=== PATIENT | female | born 1950 | race African-American/Black ===

== ENCOUNTER 2016-04-06 07:30 | Emergency (ER) | payer MEDICARE, OTHER ==
[~2016-04-06] VITALS: Ht 157.5 cm; Wt 65.0 kg
[~2016-04-06 07:30] MED LIST: BENT20TA PO; CARA1TAB6 PO; CELE20TA PO; CLON.5 PO; CLON0.1T PO; EXTR500C PO; HYDR-3583 PO; LORA1TAB12 PO; MECL-62 PO; POTA20TA5 PO; PROT40TA PO; ZANT150T2 PO; ZOFR4TAB PO
[2016-04-06 07:31] VITALS: BP 150/69; PULSE 77; RESP 14; TEMP 98; O2SAT 95
[2016-04-06] MEDS ORDERED: ONDANSETRON HCL 4 MG/2 ML VIAL IVP ONE (08:00)
[2016-04-06] MEDS ORDERED: PANTOPRAZOLE SODIUM 40 MG VIAL IVP ONE (08:00)
[2016-04-06] MEDS ORDERED: ALUMINUM/MAGNESIUM/SIMETH 30 ML CUP PO ONE (08:00)
[2016-04-06] MEDS ORDERED: MORPHINE SULFATE 4 MG/ML INJ IV PUSH ONE (08:00)
[2016-04-06] MEDS ORDERED: SODIUM CHLORIDE 0.9% FLUSH 5 ML FLUSH IVF PRN (08:00)
[2016-04-06] MEDS ORDERED: LIDOCAINE VISCOUS 2% SOLN 15 ML UDC PO ONE (08:00)
--- NOTE | 2016-04-06 08:19 | PD ---
HPI Chief Complaint: Abdominal Pain Time Seen by Provider: 07:51 Travel History International Travel<30 days: No Contact w/Intl Traveler<30days: No History of Present Illness HPI Patient is a 65-year-old female with history of gastritis who presents the emergency department with complaint of abdominal pain. Patient has had long- standing history of gastritis. For the last 2 days after eating cabbage she notes epigastric abdominal pain that radiates throughout the abdomen, nausea, vomiting and some diarrhea. Pain is crampy, burning in nature. No hematemesis or hematochezia. No fevers or chills. States this feels very similar to history of gastritis. Per chart review patient has been here many times for similar complaints. She last had an EGD on 08/13/15 with Schatzki ring in the distal esophagus, diaphragmatic hiatal hernia, gastritis, multiple biopsies that were negative for H. pylori or cancer. PFSH Past Medical History Arthritis: Yes Asthma: No Autoimmune Disease: No Blood Disorders: No Anxiety: Yes Depression: No Heart Rhythm Problems: No Cancer: No Cardiovascular Problems: Yes (HTN) High Cholesterol: No Chest Pain: No Congestive Heart Failure: No COPD: No Diabetes: No Diminished Hearing: No Endocrine: No Gastrointestinal Disorders: Yes (chronic gastritis ) GERD: Yes Genitourinary: No Hiatal Hernia: No Hypertension: Yes Immune Disorder: No Musculoskeletal: No Neurologic: No Psychiatric: Yes Reproductive: No Respiratory: No Immunizations Current: Yes Thyroid Disease: No Ulcer: Yes PNEUMOCCOCAL Vaccine (Year): 2 Menopausal: Yes : 3 Para: 3 Miscarriage: 0 : 0 Tubal Ligation: Yes (1978) Past Surgical History AICD: No Gynecologic Surgery: Yes Hysterectomy: Yes Pacemaker: No Other Surgery: Yes Social History Alcohol Use: No Tobacco Use: Yes (02/23 PPD) Substance Use: No Allergies-Medications (Allergen,Severity, Reaction): Coded Allergies: No Known Allergies (Verified , 04/06/16) Reported Meds & Prescriptions Reported Meds & Active Scripts Active Protonix (Pantoprazole Sodium) 40 Mg Tab 40 Mg PO DAILY Reported Gabapentin 300 Mg Cap 300 Mg PO DAILY Xarelto (Rivaroxaban) 20 Mg Tab 20 Mg PO DAILY Lorazepam 1 Mg Tab 1 Mg PO TID PRN Clonidine (Clonidine HCl) 0.1 Mg Tab 0.1 Mg PO BID Review of Systems Except as stated in HPI: all other systems reviewed are Neg Physical Exam Narrative GENERAL: Well-appearing elderly female in no acute distress SKIN: Warm and dry. HEAD:Normocephalic. EYES: No scleral icterus. No injection or drainage. ENT: Mucous membranes pink and moist. NECK: Supple CARDIOVASCULAR: Regular rate and rhythm. No murmur appreciated. RESPIRATORY: No accessory muscle use. Clear to auscultation. Breath sounds equal bilaterally. GASTROINTESTINAL: Abdomen soft, epigastric abdominal tenderness to palpation without rebound or guarding, nondistended. MUSCULOSKELETAL: Normal gait NEUROLOGICAL: Awake and alert. Normal speech. PSYCHIATRIC: Appropriate mood and affect; insight and judgment normal. Data Data Last Documented VS Vital Signs Date Time Temp Pulse Resp B/P Pulse Ox O2 Delivery O2 Flow Rate FiO2 04/06/16 09:44 20 04/06/16 09:08 85 176/83 95 04/06/16 07:31 98.0 Room Air Orders Complete Blood Count With Diff (04/06/16 07:59) Comprehensive Metabolic Panel (04/06/16 07:59) Lipase (04/06/16 07:59) Iv Access Insert/Monitor (04/06/16 07:59) Ecg Monitoring (04/06/16 07:59) Oximetry (04/06/16 07:59) Morphine Inj (Morphine Inj) (04/06/16 08:00) Ondansetron Inj (Zofran Inj) (04/06/16 08:00) Pantoprazole Inj (Protonix Inj) (04/06/16 08:00) Sodium Chloride 0.9% Flush (Ns Flush) (04/06/16 08:00) Electrocardiogram (04/06/16 07:59) Al-Mag Hy-Si 40-40-4 Mg/Ml Liq (Mag-Al P (04/06/16 08:00) Lidocaine 2% Viscous (Xylocaine 2% Visco (04/06/16 08:00) Urinalysis - C+S If Indicated (04/06/16 09:55) Famotidine Inj (Pepcid Inj) (04/06/16 10:15) Urine Culture (04/06/16 10:00) Labs Laboratory Tests Test 04/06/16 04/06/16 08:50 10:00 White Blood Count 12.4 TH/MM3 Red Blood Count 4.18 MIL/MM3 Hemoglobin 13.1 GM/DL Hematocrit 39.0 % Mean Corpuscular Volume 93.2 FL Mean Corpuscular Hemoglobin 31.4 PG Mean Corpuscular Hemoglobin 33.6 % Concent Red Cell Distribution Width 15.8 % Platelet Count 330 TH/MM3 Mean Platelet Volume 8.9 FL Neutrophils (%) (Auto) 84.7 % Lymphocytes (%) (Auto) 6.8 % Monocytes (%) (Auto) 7.7 % Eosinophils (%) (Auto) 0.2 % Basophils (%) (Auto) 0.6 % Neutrophils # (Auto) 10.5 TH/MM3 Lymphocytes # (Auto) 0.8 TH/MM3 Monocytes # (Auto) 1.0 TH/MM3 Eosinophils # (Auto) 0.0 TH/MM3 Basophils # (Auto) 0.1 TH/MM3 CBC Comment AUTO DIFF Differential Total Cells 100 Counted Neutrophils % (Manual) 76 % Band Neutrophils % 2 % Lymphocytes % 8 % Monocytes % 14 % Neutrophils # (Manual) 9.7 TH/MM3 Differential Comment FINAL DIFF MANUAL Platelet Estimate NORMAL Platelet Morphology Comment NORMAL Red Cell Morphology Comment NORMAL Sodium Level 138 MEQ/L Potassium Level 3.9 MEQ/L Chloride Level 106 MEQ/L Carbon Dioxide Level 24.4 MEQ/L Anion Gap 8 MEQ/L Blood Urea Nitrogen 11 MG/DL Creatinine 0.93 MG/DL Estimat Glomerular Filtration 73 ML/MIN Rate Random Glucose 115 MG/DL Calcium Level 8.7 MG/DL Total Bilirubin 0.5 MG/DL Aspartate Amino Transf 26 U/L (AST/SGOT) Alanine Aminotransferase 14 U/L (ALT/SGPT) Alkaline Phosphatase 60 U/L Total Protein 7.6 GM/DL Albumin 3.3 GM/DL Lipase 67 U/L Urine Color YELLOW Urine Turbidity CLOUDY Urine pH 5.5 Urine Specific Camp 1.027 Urine Protein 30 mg/dL Urine Glucose (UA) NEG mg/dL Urine Ketones NEG mg/dL Urine Occult Blood SMALL Urine Nitrite NEG Urine Bilirubin NEG Urine Urobilinogen LESS THAN 2.0 MG/DL Urine Leukocyte Esterase LARGE Urine RBC 13 /hpf Urine WBC /hpf Urine WBC Clumps FEW Urine Squamous Epithelial 8 /hpf Cells Urine Bacteria FEW /hpf Urine Mucus FEW /lpf Microscopic Urinalysis Comment CULTURE INDICATED MDM Medical Decision Making Medical Screen Exam Complete: Yes Emergency Medical Condition: Yes Medical Record Reviewed: Yes Differential Diagnosis 65-year-old female with long-standing gastritis here with complaint of epigastric abdominal pain radiating from the abdomen. Differential includes gastritis, pancreatitis, hepatobiliary pathology, peptic ulcer disease, bowel obstruction, gastroenteritis. Narrative Course Patient placed on monitor, IV established and blood obtained. Patient given 4 mg morphine, 4 mg Zofran, IV PPI and GI cocktail. Twelve-lead EKG showed sinus rhythm with sinus arrhythmia but no notable ST abnormalities, normal intervals. CBC, CMP, lipase unremarkable. Patient made multiple trips to the bathroom to urinate while she was here and urinalysis was done with innumerable white cell clumps, bacteria. Patient will be treated with Keflex for home. Diagnosis Primary Impression: Gastritis Qualified Code: K29.50 - Other chronic gastritis without hemorrhage Additional Impression: UTI (urinary tract infection) Qualified Code: N30.01 - Acute cystitis with hematuria Referrals: [facility] call for appointment Primary Care Physician call for appointment Additional Instructions: Finish antibiotics prescribed. Follow-up with GI physician as discussed. Med/Other Pt SpecificInfo: Prescription(s) given Scripts Cephalexin (Keflex)500 Mg [id number] Mg PO Q8H #30 CAP Ref 0 Prov:Elza Patel MD 04/06/16 Disposition: 01 DISCHARGE HOME Condition: Stable Elza Patel MD Apr 06, 2016 08:19
[2016-04-06 09:08] VITALS: BP 176/83; PULSE 85; RESP 20; O2SAT 95
[2016-04-06] MEDS ORDERED: GABA300C5 PO (09:11)
[2016-04-06] MEDS ORDERED: XARE20TA PO (09:11)
[2016-04-06 09:21] LABS: AUTOMATED NEUTROPHIL # 10.5 TH/MM3 (1.8-7.7); BASOPHIL # 0.1 TH/MM3 (0-0.2); BASOPHIL % 0.6 % (0.0-2.0); EOSINOPHIL % 0.2 % (0.0-4.0); LYMPH % 6.8 % (9.0-44.0); LYMPHOCYTE # 0.8 TH/MM3 (1.0-4.8); MEAN CELL VOLUME 93.2 FL (80.0-100.0); MEAN CORPUSCULAR HEMOGLOBIN 31.4 PG (27.0-34.0); MEAN CORPUSCULAR HGB CONC 33.6 % (32.0-36.0); MONO % 7.7 % (0.0-8.0); NEUT % 84.7 % (16.0-70.0); PLATELET COUNT 330 TH/MM3 (150-450); RED BLOOD COUNT 4.18 MIL/MM3 (4.00-5.30); RED CELL DISTRIBUTION WIDTH 15.8 % (11.6-17.2); WHITE BLOOD COUNT 12.4 TH/MM3 (4.0-11.0)
[2016-04-06 09:42] LABS: ALKALINE PHOSPHATASE 60 U/L (45-117); ALT (GPT) 14 U/L (10-53); ANION GAP 8 MEQ/L (5-15); BICARBONATE 24.4 MEQ/L (21.0-32.0); BLOOD UREA NITROGEN 11 MG/DL (7-18); CHLORIDE 106 MEQ/L (98-107); GLOMERULAR FILTRATION RATE 73 ML/MIN (>89); SODIUM (NA) 138 MEQ/L (136-145); TOTAL BILIRUBIN ADULT 0.5 MG/DL (0.2-1.0)
[2016-04-06 09:43] LABS: AST (GOT) 26 U/L (15-37); POTASSIUM 3.9 MEQ/L (3.5-5.1)
[2016-04-06 09:44] VITALS: RESP 20
[2016-04-06 09:48] LABS: HEMO FLAGS AUTO DIFF
[2016-04-06] MEDS ORDERED: FAMOTIDINE 20 MG/2 ML VIAL IV PUSH ONE (10:15)
[2016-04-06 10:20] LABS: BACTERIA, URINE FEW /hpf; BLOOD, URINE SMALL (NEG); COMMENT (UR) CULTURE INDICATED; CULTURE IF INDICATED CULTURE INDICATED; GLUCOSE,URINE NEG (NEG); KETONE, URINE NEG (NEG); MUCUS URINE FEW /lpf (OCC); NITRITE,URINE NEG (NEG); PH, URINE 5.5 (5.0-8.5); SQUAMOUS EPITHELIAL CELL URINE 8 /hpf (0-5); URINE COLOR YELLOW (YELLW/STRAW)
[2016-04-06 10:23] LABS: BANDS 2 % (0-6); NEUTROPHIL # MANUAL DIFF 9.7 TH/MM3 (1.8-7.7); POLYS (SEG NEUTROPHILS) 76 % (16-70); WBC DIFF SAMPLE 100
[2016-04-06 10:24] LABS: PLATELET ESTIMATE SMEAR NORMAL (NORMAL); PLATELET MORPHOLOGY NORMAL (NORMAL); SCAN/DIFF FINAL DIFF MANUAL
[2016-04-06] MEDS ORDERED: CEPH-460 PO (10:41)
[2016-04-06 10:51] VITALS: BP 172/82
--- NOTE | 2016-04-07 08:37 | EKG ---
Date Performed: 04/06/2016 Time Performed: 09:00:38 PTAGE: 65 years EKG: Sinus rhythm WITH SINUS ARRHYTHMIA NORMAL ECG PREVIOUS TRACING : 12/25/2015 06.50 Compared to prior tracing no significant change DOCTOR: Juan Luis Mendoza Interpretating Date/Time 04/07/2016 08:35:43
== END 2016-04-06 11:08 | disposition home or self-care (01) ==
LOC: NEPE 07:30
DX: K29.50 Unspecified chronic gastritis without bleeding (principal); N39.0 Urinary tract infection, site not specified; I10 Essential (primary) hypertension; F17.210 Nicotine dependence, cigarettes, uncomplicated; I49.8 Other specified cardiac arrhythmias
CPT/HCPCS: 80053; 81001; 83690; 85007; 85027; 87086; 93005; 96374; 96375; 99284; C9113; J2270; J2405

== ENCOUNTER 2016-04-14 07:37 | Observation (INO) | payer MEDICARE, OTHER ==
[~2016-04-14] VITALS: Ht 157.5 cm; Wt 65.0 kg
[~2016-04-14 07:37] MED LIST changes: -BENT20TA PO; -CARA1TAB6 PO; -CELE20TA PO; +CEPH-460 PO; -CLON.5 PO; -EXTR500C PO; +GABA300C5 PO; -HYDR-3583 PO; -MECL-62 PO; -POTA20TA5 PO; +XARE20TA PO; -ZANT150T2 PO; -ZOFR4TAB PO
[2016-04-14 07:40] VITALS: BP 168/93; PULSE 83; TEMP 98.9; O2SAT 98
[2016-04-14 07:45] VITALS: RESP 20
--- NOTE | 2016-04-14 08:10 | PD ---
HPI Chief Complaint: GI Complaint Time Seen by Provider: 08:00 Travel History International Travel<30 days: No Contact w/Intl Traveler<30days: No Traveled to known affect area: No History of Present Illness HPI 65-year-old female presents with nonbloody emesis and flare of her acute gastritis. She states she follows with the stomach doctor but does not have any nausea medication at home. She states she cannot keep down her home Protonix. She states that she has had a scope of her stomach. She states that she's also been having diarrhea. She denies other concurrent complaints. She states she feels worse when she moves around. She denies other modifying factors. Quality is nonbloody. Severity is multiple episodes. PFSH Past Medical History Arthritis: Yes Asthma: No Autoimmune Disease: No Blood Disorders: No Anxiety: Yes Depression: No Heart Rhythm Problems: No Cancer: No Cardiovascular Problems: Yes (HTN) High Cholesterol: No Chest Pain: No Congestive Heart Failure: No COPD: No Diabetes: No Diminished Hearing: No Endocrine: No Gastrointestinal Disorders: Yes (chronic gastritis ) GERD: Yes Genitourinary: No Hiatal Hernia: No Hypertension: Yes Immune Disorder: No Musculoskeletal: No Neurologic: No Psychiatric: Yes Reproductive: No Respiratory: No Immunizations Current: Yes Thyroid Disease: No Ulcer: Yes PNEUMOCCOCAL Vaccine (Year): 2 Menopausal: Yes : 3 Para: 3 Miscarriage: 0 : 0 Tubal Ligation: Yes (1978) Past Surgical History AICD: No Gynecologic Surgery: Yes Hysterectomy: Yes Pacemaker: No Other Surgery: Yes Social History Alcohol Use: No Tobacco Use: No (1/2 PPD states quit) Substance Use: No Allergies-Medications (Allergen,Severity, Reaction): Coded Allergies: No Known Allergies (Verified , 04/06/16) Reported Meds & Prescriptions Reported Meds & Active Scripts Active Keflex (Cephalexin) 500 Mg Cap 500 Mg PO Q8H Protonix (Pantoprazole Sodium) 40 Mg Tab 40 Mg PO DAILY Reported Gabapentin 300 Mg Cap 300 Mg PO DAILY Xarelto (Rivaroxaban) 20 Mg Tab 20 Mg PO DAILY Lorazepam 1 Mg Tab 1 Mg PO TID PRN Clonidine (Clonidine HCl) 0.1 Mg Tab 0.1 Mg PO BID Review of Systems Except as stated in HPI: all other systems reviewed are Neg Physical Exam Narrative GENERAL: Well-nourished, well-developed patient. uncomfortable SKIN: Warm and dry. HEAD: Normocephalic and atraumatic. EYES: No injection or drainage. ENT: No nasal drainage noted. NECK: Supple, trachea midline. CARDIOVASCULAR: Regular rate and rhythm RESPIRATORY: Breath sounds equal bilaterally. No accessory muscle use. GASTROINTESTINAL: Abdomen soft, ttp in epigastric area, nondistended. EXTREMITIES: No edema. BACK: Nontender without obvious deformity. NEUROLOGICAL: Awake and alert. Motor and sensory grossly within normal limits. Normal speech. Data Data Last Documented VS Vital Signs Date Time Temp Pulse Resp B/P Pulse Ox O2 Delivery O2 Flow Rate FiO2 04/14/16 07:45 20 04/14/16 07:40 98.9 83 168/93 98 Orders Ondansetron Odt (Zofran Odt) (04/14/16 08:15) Oral Rehydration (04/14/16 08:20) Pantoprazole (Protonix) (04/14/16 08:30) Complete Blood Count With Diff (04/14/16 08:53) Comprehensive Metabolic Panel (04/14/16 08:53) Lipase (04/14/16 08:53) Iv Access Insert/Monitor (04/14/16 08:53) Sodium Chlor 0.9% 1000 Ml Inj (Ns 1000 M (04/14/16 09:00) Promethazine Inj (Phenergan Inj) (04/14/16 09:00) Oral Rehydration (04/14/16 09:59) Sodium Chlor 0.9% 1000 Ml Inj (Ns 1000 M (04/14/16 10:15) Pantoprazole Inj (Protonix Inj) (04/14/16 10:15) Electrocardiogram (04/14/16 ) Admit Order (Ed Use Only) (04/14/16 11:01) Metoclopramide Inj (Reglan Inj) (04/14/16 11:15) Physician Name Changes (04/14/16 ) Place In Observation (04/14/16 ) Vital Signs (Adult) Q4H (04/14/16 11:12) Activity Oob With Assistance (04/14/16 11:12) Bedside Glucose KATHLEEN.AC&HS (04/14/16 11:12) Bedside Glucose KATHLEEN.AC&HS (04/14/16 11:12) Intake + Output KATHLEEN.QSHIFT (04/14/16 11:12) Diet Clear Liquid (04/14/16 Lunch) Sodium Chlor 0.9% 1000 Ml Inj (Ns 1000 M (04/14/16 11:12) Sodium Chloride 0.9% Flush (Ns Flush) (04/14/16 11:15) Sodium Chloride 0.9% Flush (Ns Flush) (04/14/16 21:00) Acetaminophen (Tylenol) (04/14/16 11:15) Ondansetron Inj (Zofran Inj) (04/14/16 11:15) Basic Metabolic Panel (Bmp) (04/15/16 06:00) Complete Blood Count With Diff (04/15/16 06:00) Heparin Inj (Heparin Inj) (04/14/16 12:00) Naloxone Inj (Narcan Inj) (04/14/16 11:15) Pantoprazole Inj (Protonix Inj) (04/14/16 12:00) Consult Gastroenterology (04/14/16 ) Labs Laboratory Tests Test 04/14/16 09:15 White Blood Count 10.8 TH/MM3 Red Blood Count 5.17 MIL/MM3 Hemoglobin 15.8 GM/DL Hematocrit 48.2 % Mean Corpuscular Volume 93.2 FL Mean Corpuscular Hemoglobin 30.6 PG Mean Corpuscular Hemoglobin 32.8 % Concent Red Cell Distribution Width 15.3 % Platelet Count 432 TH/MM3 Mean Platelet Volume 8.0 FL Neutrophils (%) (Auto) 87.6 % Lymphocytes (%) (Auto) 8.5 % Monocytes (%) (Auto) 3.3 % Eosinophils (%) (Auto) 0.1 % Basophils (%) (Auto) 0.5 % Neutrophils # (Auto) 9.4 TH/MM3 Lymphocytes # (Auto) 0.9 TH/MM3 Monocytes # (Auto) 0.4 TH/MM3 Eosinophils # (Auto) 0.0 TH/MM3 Basophils # (Auto) 0.1 TH/MM3 CBC Comment DIFF FINAL Differential Comment Sodium Level 137 MEQ/L Potassium Level 3.5 MEQ/L Chloride Level 102 MEQ/L Carbon Dioxide Level 24.7 MEQ/L Anion Gap 10 MEQ/L Blood Urea Nitrogen 23 MG/DL Creatinine 1.54 MG/DL Estimat Glomerular Filtration 41 ML/MIN Rate Random Glucose 138 MG/DL Calcium Level 10.1 MG/DL Total Bilirubin 0.3 MG/DL Aspartate Amino Transf 12 U/L (AST/SGOT) Alanine Aminotransferase 15 U/L (ALT/SGPT) Alkaline Phosphatase 74 U/L Total Protein 9.3 GM/DL Albumin 4.5 GM/DL Lipase 161 U/L [facility] Medical Decision Making Medical Screen Exam Complete: Yes Emergency Medical Condition: Yes Medical Record Reviewed: Yes (past history confirmed) Interpretation(s) CBC & BMP Diagram 04/14/16 09:15 Differential Diagnosis Gastritis, gastroenteritis, dehydration.... Narrative Course Will provide with Zofran and if can orally tolerate liquids dose with Protonix. This is likely acute flare of her chronic GI issue. She was just here on the with blood work done and urine that showed skin jimi. I advised patient that we will make sure she is tolerating liquids and able to keep down her home medication before discharge. 850 unable to tolerate liquids, will check labs, dose with ivf and phenergan and reeval on second recheck still vomiting, will dose with reglan and place in observation , patient agrees to plan Physician Communication Physician Communication dr mckeon agrees to admit Diagnosis Primary Impression: Intractable vomiting Qualified Code: R11.2 - Intractable vomiting with nausea, unspecified vomiting type Additional Impressions: Gastritis Qualified Code: K29.70 - Gastritis without bleeding, unspecified chronicity, unspecified gastritis type Renal insufficiency Admitting Information Admitting Physician Requests: Observation Angelic Ku MD Apr 14, 2016 08:10
[2016-04-14] MEDS ORDERED: ONDANSETRON ODT 4 MG TAB PO ONE (08:15)
[2016-04-14] MEDS ORDERED: PANTOPRAZOLE SOD 40 MG DELAYED RELEASE TAB PO ONE (08:30)
[2016-04-14] MEDS ORDERED: SODIUM CHLOR 0.9% 1000 ML INJ 1,000 ML IV ONE ×2 (09:00→10:15)
[2016-04-14] MEDS ORDERED: PROMETHAZINE INJ 25 MG/ML VIAL IM ONE (09:00)
[2016-04-14 09:33] LABS: AUTOMATED NEUTROPHIL # 9.4 TH/MM3 (1.8-7.7); BASOPHIL # 0.1 TH/MM3 (0-0.2); BASOPHIL % 0.5 % (0.0-2.0); EOSINOPHIL % 0.1 % (0.0-4.0); HEMATOCRIT 48.2 % (35.0-46.0); HEMO FLAGS DIFF FINAL; LYMPH % 8.5 % (9.0-44.0); LYMPHOCYTE # 0.9 TH/MM3 (1.0-4.8); MEAN CELL VOLUME 93.2 FL (80.0-100.0); MEAN CORPUSCULAR HEMOGLOBIN 30.6 PG (27.0-34.0); MEAN CORPUSCULAR HGB CONC 32.8 % (32.0-36.0); MONO % 3.3 % (0.0-8.0); NEUT % 87.6 % (16.0-70.0); PLATELET COUNT 432 TH/MM3 (150-450); RED BLOOD COUNT 5.17 MIL/MM3 (4.00-5.30); RED CELL DISTRIBUTION WIDTH 15.3 % (11.6-17.2); WHITE BLOOD COUNT 10.8 TH/MM3 (4.0-11.0)
[2016-04-14 09:52] LABS: ANION GAP 10 MEQ/L (5-15); AST (GOT) 12 U/L (15-37); BICARBONATE 24.7 MEQ/L (21.0-32.0); BLOOD UREA NITROGEN 23 MG/DL (7-18); CHLORIDE 102 MEQ/L (98-107); GLOMERULAR FILTRATION RATE 41 ML/MIN (>89); POTASSIUM 3.5 MEQ/L (3.5-5.1); SODIUM (NA) 137 MEQ/L (136-145)
[2016-04-14 09:56] LABS: ALKALINE PHOSPHATASE 74 U/L (45-117); ALT (GPT) 15 U/L (10-53); TOTAL BILIRUBIN ADULT 0.3 MG/DL (0.2-1.0)
[2016-04-14] MEDS ORDERED: PANTOPRAZOLE SODIUM 40 MG VIAL IV PUSH ONE (10:15)
[2016-04-14] MEDS ORDERED: SODIUM CHLOR 0.9% 1000 ML INJ 1,000 ML IV SCH (11:12)
[2016-04-14] MEDS ORDERED: SODIUM CHLORIDE 0.9% FLUSH 5 ML FLUSH FLUSH PRN (11:15)
[2016-04-14] MEDS ORDERED: ACETAMINOPHEN 325 MG TAB PO PRN (11:15)
[2016-04-14] MEDS ORDERED: NALOXONE HCL 0.4 MG/ML AMP IV PRN (11:15)
[2016-04-14] MEDS ORDERED: ONDANSETRON HCL 4 MG/2 ML VIAL IVP PRN (11:15)
[2016-04-14] MEDS ORDERED: METOCLOPRAMIDE HCL 10 MG/2 ML VIAL IV PUSH ONE (11:15)
[2016-04-14] MEDS ORDERED: HEPARIN SODIUM - SQ 10,000 UNITS/ML VIAL SQ SCH (12:00)
[2016-04-14] MEDS ORDERED: PANTOPRAZOLE SODIUM 40 MG VIAL IV PUSH SCH (12:00)
[2016-04-14 12:17] VITALS: BP 183/87; PULSE 74; RESP 20; O2SAT 96
[2016-04-14] MEDS ORDERED: hydrALAZINE HCL 20 MG/ML VIAL IV PUSH PRN ×2 (14:00→15:00)
[2016-04-14] MEDS ORDERED: SODIUM CHLORIDE 0.9% FLUSH 5 ML FLUSH FLUSH SCH (21:00)
== END 2016-04-14 16:50 | disposition left against medical advice (07) ==
LOC: NEPC 07:37 → NEDA 11:05
PROVIDERS: ADMIT Internal Medicine; ATTEND Internal Medicine
DX: K29.50 Unspecified chronic gastritis without bleeding (principal); I10 Essential (primary) hypertension; R11.2 Nausea with vomiting, unspecified
CPT/HCPCS: 80053; 83690; 85025; 96372; 96374; 96375; 99285; C9113; G0378; J1644; J2550; J2765; J7030

== ENCOUNTER 2016-07-24 09:57 | Emergency (ER) | payer MEDICARE, OTHER ==
[~2016-07-24] VITALS: Ht 157.5 cm; Wt 63.0 kg
[2016-07-24 10:01] VITALS: BP 178/91; PULSE 111; RESP 21; TEMP 98.2; O2SAT 99
[2016-07-24] MEDS ORDERED: SODIUM CHLOR 0.9% 1000 ML INJ 1,000 ML IV SCH (10:11)
[2016-07-24] MEDS ORDERED: LIDOCAINE VISCOUS 2% SOLN 15 ML UDC PO ONE (10:15)
[2016-07-24] MEDS ORDERED: ALUMINUM/MAGNESIUM/SIMETH 30 ML CUP PO ONE (10:15)
[2016-07-24] MEDS ORDERED: ONDANSETRON HCL 4 MG/2 ML VIAL IVP ONE (10:15)
[2016-07-24] MEDS ORDERED: ACETAMINOPHEN/HYDROcodone 325 MG/10 MG TAB PO ONE (10:15)
[2016-07-24] MEDS ORDERED: SODIUM CHLORIDE 0.9% FLUSH 10 ML FLUSH IV FLUSH PRN (10:15)
[2016-07-24] MEDS ORDERED: MECL-62 PO (10:22)
[2016-07-24] MEDS ORDERED: XARE20TA PO (10:22)
[2016-07-24] MEDS ORDERED: CARA1TAB6 PO (10:31)
--- NOTE | 2016-07-24 10:31 | PD ---
HPI Chief Complaint: GI Complaint Time Seen by Provider: 10:11 Travel History International Travel<30 days: No Contact w/Intl Traveler<30days: No Traveled to known affect area: No History of Present Illness HPI 66 F c/o epigastric abdominal pain described as gastritis. it started last night after eating a hamburger with seasoned salt. several episodes of nonbloody emesis ensued. multiple episodes of nonbloody diarrhea also occurred. pain is constant and severe. subjective fever reported overnight. pt believes hamburger may have been spoiled. she denies etoh. prior records reveal: egd from about 1 year prior revealed schatzki ring in distal sophagus, diaphragmatic hiatal hernia, pathology revealed reactive/chemical gastropathy in the backgroun of mild chronic gastritis, negative for helicobacter pylori. PPI and carafate evidently helped last time. pt seen by dr hanna at that time. multiple medications are due for refill including xarelto, lortab, ativan, gabapentin and are filled and available at [facility]. PFSH Past Medical History Arthritis: Yes Asthma: No Autoimmune Disease: No Blood Disorders: No Anxiety: Yes Depression: No Heart Rhythm Problems: No Cancer: No Cardiovascular Problems: Yes (HTN) High Cholesterol: No Chest Pain: No Congestive Heart Failure: No COPD: No Diabetes: No Diminished Hearing: No Endocrine: No Gastrointestinal Disorders: Yes (chronic gastritis ) GERD: Yes Genitourinary: No Hiatal Hernia: No Hypertension: Yes Immune Disorder: No Musculoskeletal: No Neurologic: No Psychiatric: Yes Reproductive: No Respiratory: No Immunizations Current: Yes Thyroid Disease: No Ulcer: Yes PNEUMOCCOCAL Vaccine (Year): 2 Menopausal: Yes : 3 Para: 3 Miscarriage: 0 : 0 Tubal Ligation: Yes (1978) Past Surgical History AICD: No Gynecologic Surgery: Yes Hysterectomy: Yes Pacemaker: No Other Surgery: Yes Social History Alcohol Use: No Tobacco Use: No (1/2 PPD states quit) Substance Use: No Allergies-Medications (Allergen,Severity, Reaction): Coded Allergies: No Known Allergies (Verified , 07/24/16) Reported Meds & Prescriptions Reported Meds & Active Scripts Active Carafate (Sucralfate) 1 Gm Tab 1 Gm PO TID 7 Days On empty stomach Protonix (Pantoprazole Sodium) 40 Mg Tab 40 Mg PO DAILY Reported Xarelto (Rivaroxaban) 20 Mg Tab 20 Mg PO DAILY Meclizine (Meclizine HCl) 25 Mg Tab 25 Mg PO TID PRN Gabapentin 300 Mg Cap 300 Mg PO DAILY Xarelto (Rivaroxaban) 20 Mg Tab 20 Mg PO DAILY Lorazepam 1 Mg Tab 1 Mg PO TID PRN Clonidine (Clonidine HCl) 0.1 Mg Tab 0.1 Mg PO BID Review of Systems Except as stated in HPI: all other systems reviewed are Neg Gastrointestinal: Positive: Nausea, Vomiting, Diarrhea, Abdominal Pain Physical Exam Narrative GENERAL: 66 yo F, WNWD, moderate distress 2/2 pain and/or anxiety SKIN: Warm and dry. HEAD: Atraumatic. Normocephalic. EYES: Pupils equal and round. No scleral icterus. No injection or drainage. ENT: No nasal bleeding or discharge. Mucous membranes pink and moist. NECK: Trachea midline. No JVD. CARDIOVASCULAR: Regular rhythm. Tachycardia. RESPIRATORY: No accessory muscle use. Clear to auscultation. Breath sounds equal bilaterally. GASTROINTESTINAL: Soft. Non-specific generalized tenderness. MUSCULOSKELETAL: Extremities without clubbing, cyanosis, or edema. No obvious deformities. NEUROLOGICAL: Awake and alert. No obvious cranial nerve deficits. Motor grossly within normal limits. Five out of 5 muscle strength in the arms and legs. Normal speech. PSYCHIATRIC: Anxious though not unreasonable. Data Data Last Documented VS Vital Signs Date Time Temp Pulse Resp B/P Pulse Ox O2 Delivery O2 Flow Rate FiO2 07/24/16 10:44 96 Room Air 07/24/16 10:01 98.2 111 21 178/91 vs reviewed Orders Complete Blood Count With Diff (07/24/16 10:11) Comprehensive Metabolic Panel (07/24/16 10:11) Lipase (07/24/16 10:11) Iv Access Insert/Monitor (07/24/16 10:11) Ecg Monitoring (07/24/16 10:11) Oximetry (07/24/16 10:11) Ondansetron Inj (Zofran Inj) (07/24/16 10:15) Sodium Chlor 0.9% 1000 Ml Inj (Ns 1000 M (07/24/16 10:11) Sodium Chloride 0.9% Flush (Ns Flush) (07/24/16 10:15) Al-Mag Hy-Si 40-40-4 Mg/Ml Liq (Mag-Al P (07/24/16 10:15) Lidocaine 2% Viscous (Xylocaine 2% Visco (07/24/16 10:15) Acetamin-Hydrocod 325-10 Mg (Tyrone 10-32 (07/24/16 10:15) Morphine Inj (Morphine Inj) (07/24/16 11:00) Morphine Inj (Morphine Inj) (07/24/16 10:56) Potassium Chloride (Kcl) (07/24/16 11:30) Labs Laboratory Tests Test 07/24/16 10:39 White Blood Count 5.3 TH/MM3 Red Blood Count 4.87 MIL/MM3 Hemoglobin 15.0 GM/DL Hematocrit 44.1 % Mean Corpuscular Volume 90.6 FL Mean Corpuscular Hemoglobin 30.9 PG Mean Corpuscular Hemoglobin 34.1 % Concent Red Cell Distribution Width 14.6 % Platelet Count 305 TH/MM3 Mean Platelet Volume 8.7 FL Neutrophils (%) (Auto) 69.3 % Lymphocytes (%) (Auto) 25.1 % Monocytes (%) (Auto) 5.0 % Eosinophils (%) (Auto) 0.2 % Basophils (%) (Auto) 0.4 % Neutrophils # (Auto) 3.7 TH/MM3 Lymphocytes # (Auto) 1.3 TH/MM3 Monocytes # (Auto) 0.3 TH/MM3 Eosinophils # (Auto) 0.0 TH/MM3 Basophils # (Auto) 0.0 TH/MM3 CBC Comment DIFF FINAL Differential Comment Sodium Level 138 MEQ/L Potassium Level 3.2 MEQ/L Chloride Level 101 MEQ/L Carbon Dioxide Level 27.3 MEQ/L Anion Gap 10 MEQ/L Blood Urea Nitrogen 17 MG/DL Creatinine 0.97 MG/DL Estimat Glomerular Filtration 69 ML/MIN Rate Random Glucose 114 MG/DL Calcium Level 9.7 MG/DL Total Bilirubin 0.5 MG/DL Aspartate Amino Transf 14 U/L (AST/SGOT) Alanine Aminotransferase 15 U/L (ALT/SGPT) Alkaline Phosphatase 53 U/L Total Protein 8.3 GM/DL Albumin 4.2 GM/DL Lipase 136 U/L [facility] Medical Decision Making Medical Screen Exam Complete: Yes Emergency Medical Condition: Yes Medical Record Reviewed: Yes Differential Diagnosis Constipation, Gastritis, Acute Cholecystitis, Biliary Colic, Pancreatitis, WILEY , Hepatitis, Bowel Obstruction, Cystitis, Mesenteric Ischemia, AAA, Appendicitis , Renal Stone/Hydronephrosis, GERD, perforated viscous Narrative Course CBC & BMP Diagram 07/24/16 10:39 LFTs normal Lipase 136 Possible element of hyperalgesic state considered. Reassessed at 1129AM the patient is resting comfortably and feels better, is alert and in no distress. The patients results and examination findings were discussed. The repeat examination is unremarkable and benign. The history, exam, diagnostic testing, and current condition do not suggest any significant pathology to warrant further testing, continued ED treatment, admission, or surgical evaluation at this point. The vital signs have been stable. The patient does not have uncontrollable pain, intractable vomiting, or other significant symptoms. The patient's condition is stable and appropriate for discharge. The patient will pursue further outpatient evaluation with a primary care physician or other designated or consulting physician as indicated in the discharge instructions. The patient expressed understanding and was agreeable with this plan. Diagnosis Primary Impression: Gastritis Qualified Code: K29.50 - Chronic gastritis without bleeding, unspecified gastritis type Additional Impression: Abdominal pain Qualified Code: R10.13 - Epigastric pain Referrals: Imelda Hanna MD [address] BHAKTA 2 days Additional Instructions: You have a choice when it comes to health care, and we are glad that you chose [email or web address]. Hopefully, we have met your expectations on today's visit. You are welcome to return to [email or web address] at any time, as we are committed to meeting the health care needs of our community. Med/Other Pt SpecificInfo: Prescription(s) given Scripts Sucralfate (Carafate)1 Gm Tab1 Gm PO TID 7 Days Ref 0 On empty stomach Prov:Osbaldo Winchester MD 07/24/16 Disposition: 01 DISCHARGE HOME Condition: Stable Osbaldo Winchester MD Jul 24, 2016 10:31 Osbaldo Winchester MD Jul 24, 2016 10:31
[2016-07-24 10:44] VITALS: O2SAT 96
[2016-07-24] MEDS ORDERED: MORPHINE SULFATE 8 MG/ML INJ ONE (10:56)
[2016-07-24 10:58] LABS: AUTOMATED NEUTROPHIL # 3.7 TH/MM3 (1.8-7.7); BASOPHIL % 0.4 % (0.0-2.0); EOSINOPHIL % 0.2 % (0.0-4.0); HEMATOCRIT 44.1 % (35.0-46.0); HEMO FLAGS DIFF FINAL; LYMPH % 25.1 % (9.0-44.0); LYMPHOCYTE # 1.3 TH/MM3 (1.0-4.8); MEAN CELL VOLUME 90.6 FL (80.0-100.0); MEAN CORPUSCULAR HEMOGLOBIN 30.9 PG (27.0-34.0); MEAN CORPUSCULAR HGB CONC 34.1 % (32.0-36.0); NEUT % 69.3 % (16.0-70.0); PLATELET COUNT 305 TH/MM3 (150-450); RED BLOOD COUNT 4.87 MIL/MM3 (4.00-5.30); RED CELL DISTRIBUTION WIDTH 14.6 % (11.6-17.2); WHITE BLOOD COUNT 5.3 TH/MM3 (4.0-11.0)
[2016-07-24] MEDS ORDERED: MORPHINE SULFATE 4 MG/ML INJ IV PUSH ONE (11:00)
[2016-07-24 11:13] LABS: ALT (GPT) 15 U/L (10-53); ANION GAP 10 MEQ/L (5-15); AST (GOT) 14 U/L (15-37); BICARBONATE 27.3 MEQ/L (21.0-32.0); BLOOD UREA NITROGEN 17 MG/DL (7-18); CHLORIDE 101 MEQ/L (98-107); GLOMERULAR FILTRATION RATE 69 ML/MIN (>89); POTASSIUM 3.2 MEQ/L (3.5-5.1); SODIUM (NA) 138 MEQ/L (136-145)
[2016-07-24 11:15] LABS: ALKALINE PHOSPHATASE 53 U/L (45-117); TOTAL BILIRUBIN ADULT 0.5 MG/DL (0.2-1.0)
[2016-07-24] MEDS ORDERED: POTASSIUM CHLORIDE 20 MEQ CONTROLLED RELEASE TAB PO ONE (11:30)
== END 2016-07-24 11:40 | disposition home or self-care (01) ==
LOC: NEPE 09:57
DX: K29.50 Unspecified chronic gastritis without bleeding (principal); I10 Essential (primary) hypertension; Z87.891 Personal history of nicotine dependence
CPT/HCPCS: 80053; 83690; 85025; 96361; 96374; 96375; 99284; J2270; J2405; J7030

== ENCOUNTER 2016-08-17 12:17 | Emergency (ER) | payer MEDICARE, OTHER ==
[~2016-08-17] VITALS: Ht 172.7 cm; Wt 65.0 kg
[~2016-08-17 12:17] MED LIST changes: +CARA1TAB6 PO; -CEPH-460 PO; +MECL-62 PO
[2016-08-17 13:13] VITALS: BP 162/88; PULSE 67; RESP 20; TEMP 97.8; O2SAT 98
--- NOTE | 2016-08-17 13:15 | PD ---
Physical Exam Time Seen by Provider: 13:13 Narrative 66yo F c/o "gastritis" since Wednesday. +fever, vomiting, diarrhea, abd pain. Patient seen in triage. Awaiting bed placement. VS reviewed. MDM Supervised Visit with KYM: Aliya Rayo Aug 17, 2016 13:15
--- NOTE | 2016-08-17 14:37 | PD ---
HPI Chief Complaint: GI Complaint Time Seen by Provider: 14:36 Travel History International Travel<30 days: No Contact w/Intl Traveler<30days: No Traveled to known affect area: No History of Present Illness HPI 66-year-old Afro-[place] female presents the emergency department with recurrent gastritis symptoms including epigastric pain and emesis. Patient has a history of this in the past. Patient recently seen beginning in July for the same complaint. Patient has a history of of requiring esophageal stretching secondary to Schatzki ring formation at the base. Patient states this is been ongoing since last Wednesday, it is now Wednesday. She denies fever, chills, or other symptoms. He denies any urinary symptoms. Patient states clearly that the only and helps his morphine. Pain is 10 over 10 according to the patient. She has no known drug allergies. PFSH Past Medical History Arthritis: Yes Asthma: No Autoimmune Disease: No Blood Disorders: No Anxiety: Yes Depression: No Heart Rhythm Problems: No Cancer: No Cardiovascular Problems: Yes (HTN) High Cholesterol: No Chest Pain: No Congestive Heart Failure: No COPD: No Diabetes: No Diminished Hearing: No Endocrine: No Gastrointestinal Disorders: Yes (chronic gastritis ) GERD: Yes Genitourinary: No Hiatal Hernia: No Hypertension: Yes Immune Disorder: No Musculoskeletal: No Neurologic: No Psychiatric: Yes Reproductive: No Respiratory: No Immunizations Current: Yes Thyroid Disease: No Ulcer: Yes PNEUMOCCOCAL Vaccine (Year): 2 Menopausal: Yes : 3 Para: 3 Miscarriage: 0 : 0 Tubal Ligation: Yes (1978) Past Surgical History AICD: No Gynecologic Surgery: Yes Hysterectomy: Yes Pacemaker: No Other Surgery: Yes Social History Alcohol Use: No Tobacco Use: No Substance Use: No Allergies-Medications (Allergen,Severity, Reaction): Coded Allergies: No Known Allergies (Verified , 08/17/16) Reported Meds & Prescriptions Reported Meds & Active Scripts Active Omeprazole 40 Mg Cap 40 Mg PO DAILY Carafate (Sucralfate) 1 Gm Tab 1 Gm PO TID 7 Days On empty stomach Protonix (Pantoprazole Sodium) 40 Mg Tab 40 Mg PO DAILY Reported Xarelto (Rivaroxaban) 20 Mg Tab 20 Mg PO DAILY Meclizine (Meclizine HCl) 25 Mg Tab 25 Mg PO TID PRN Gabapentin 300 Mg Cap 300 Mg PO DAILY Xarelto (Rivaroxaban) 20 Mg Tab 20 Mg PO DAILY Lorazepam 1 Mg Tab 1 Mg PO TID PRN Clonidine (Clonidine HCl) 0.1 Mg Tab 0.1 Mg PO BID Review of Systems ROS Limitations: Clinical Condition, Poor Historian Except as stated in HPI: all other systems reviewed are Neg General / Constitutional: No: Fever Eyes: No: Visual changes HENT: No: Headaches Cardiovascular: No: Chest Pain or Discomfort Respiratory: No: Shortness of Breath Gastrointestinal: No: Abdominal Pain Genitourinary: No: Dysuria Musculoskeletal: No: Pain Skin: No Rash Neurologic: No: Weakness Psychiatric: No: Depression Endocrine: No: Polydipsia Hematologic/Lymphatic: No: Easy Bruising Physical Exam Narrative GENERAL: Patient appears to be in moderate distress. SKIN: Warm and dry. Normal color. Normal turgor. No diaphoresis. HEAD: Atraumatic. Normocephalic. EYES: Pupils equal and round. No scleral icterus. No injection or drainage. ENT: No nasal bleeding or discharge. Mucous membranes pink and moist. Pharynx is clear. Airway patent. NECK: Trachea midline. Supple. CARDIOVASCULAR: Regular rate and rhythm. RESPIRATORY: No accessory muscle use. Clear to auscultation. Breath sounds equal bilaterally. GASTROINTESTINAL: Abdomen soft, moderate epigastric tenderness, nondistended. Hepatic and splenic margins not palpable. MUSCULOSKELETAL: Extremities without clubbing, cyanosis, or edema. No obvious deformities. NEUROLOGICAL: Awake and alert. No obvious cranial nerve deficits. Motor grossly within normal limits. Five out of 5 muscle strength in the arms and legs. Normal speech. PSYCHIATRIC: Appropriate mood and affect; insight and judgment normal. Data Data Last Documented VS Vital Signs Date Time Temp Pulse Resp B/P Pulse Ox O2 Delivery O2 Flow Rate FiO2 08/17/16 15:54 16 08/17/16 13:13 97.8 67 162/88 98 Orders Complete Blood Count With Diff (08/17/16 14:40) Comprehensive Metabolic Panel (08/17/16 14:40) Lipase (08/17/16 14:40) Iv Access Insert/Monitor (08/17/16 14:40) Ecg Monitoring (08/17/16 14:40) Oximetry (08/17/16 14:40) NPO (08/17/16 14:40) Morphine Inj (Morphine Inj) (08/17/16 14:45) Ondansetron Inj (Zofran Inj) (08/17/16 14:45) Pantoprazole Inj (Protonix Inj) (08/17/16 14:45) Sodium Chlor 0.9% 1000 Ml Inj (Ns 1000 M (08/17/16 14:40) Sodium Chloride 0.9% Flush (Ns Flush) (08/17/16 14:45) Al-Mag Hy-Si 40-40-4 Mg/Ml Liq (Mag-Al P (08/17/16 14:45) Lidocaine 2% Viscous (Xylocaine 2% Visco (08/17/16 14:45) Vascular Access Team Consult/P PRN (08/17/16 15:02) Vascular Poc Ultrasound (08/17/16 ) Labs Laboratory Tests Test 08/17/16 17:20 White Blood Count 9.2 TH/MM3 Red Blood Count 4.71 MIL/MM3 Hemoglobin 14.6 GM/DL Hematocrit 43.3 % Mean Corpuscular Volume 91.8 FL Mean Corpuscular Hemoglobin 31.0 PG Mean Corpuscular Hemoglobin 33.7 % Concent Red Cell Distribution Width 14.0 % Platelet Count 305 TH/MM3 Mean Platelet Volume 9.6 FL Neutrophils (%) (Auto) 89.2 % Lymphocytes (%) (Auto) 7.7 % Monocytes (%) (Auto) 2.4 % Eosinophils (%) (Auto) 0.0 % Basophils (%) (Auto) 0.7 % Neutrophils # (Auto) 8.2 TH/MM3 Lymphocytes # (Auto) 0.7 TH/MM3 Monocytes # (Auto) 0.2 TH/MM3 Eosinophils # (Auto) 0.0 TH/MM3 Basophils # (Auto) 0.1 TH/MM3 CBC Comment DIFF FINAL Differential Comment Sodium Level 141 MEQ/L Potassium Level 3.3 MEQ/L Chloride Level 102 MEQ/L Carbon Dioxide Level 25.9 MEQ/L Anion Gap 13 MEQ/L Blood Urea Nitrogen 16 MG/DL Creatinine 1.09 MG/DL Estimat Glomerular Filtration 60 ML/MIN Rate Random Glucose 158 MG/DL Calcium Level 10.0 MG/DL Total Bilirubin 0.4 MG/DL Aspartate Amino Transf 18 U/L (AST/SGOT) Alanine Aminotransferase 15 U/L (ALT/SGPT) Alkaline Phosphatase 50 U/L Total Protein 8.6 GM/DL Albumin 4.3 GM/DL Lipase 102 U/L [facility] Medical Decision Making Medical Screen Exam Complete: Yes Emergency Medical Condition: Yes Medical Record Reviewed: Yes Differential Diagnosis Recurrent gastritis. Denies. Intractable emesis. Narrative Course Patient appears medically stable at time of exam. Labs ordered including CBC, CMP, lipase, and urinalysis. IV access is obtained and the patient is given 4 mg Zofran IV as well as 40 mg pantoprazole IV. Patient is given GI cocktail by mouth. Patient is given 1000 mls normal saline bolus. Patient states none of the above medications improved her symptoms. 1640 hrs. patient is seen sleeping comfortably in the room. CBC is unremarkable. CMP unremarkable except for potassium of 3.3. Creatinine 1.09. Random glucose 158. Total protein 8.6. Patient is felt stable for discharge home. Patient is given a prescription for omeprazole 40 mg daily for 30. Patient also given Carafate 1 g 3 times a day for the next 7 days. Patient follow with her primary care physician. She can return the emergency Department with worsening symptoms if necessary. Diagnosis Primary Impression: Abdominal pain Qualified Code: R10.13 - Epigastric pain Additional Impression: Gastritis Qualified Code: K29.50 - Chronic gastritis without bleeding, unspecified gastritis type Patient Instructions: Diet for Ulcers and Gastritis (ED), Gastritis (ED), General Instructions Additional Instructions: CBC is unremarkable. CMP unremarkable except for potassium of 3.3. Creatinine 1.09. Random glucose 158. Total protein 8.6. Patient is felt stable for discharge home. Patient is given a prescription for omeprazole 40 mg daily for 30. Patient also given Carafate 1 g 3 times a day for the next 7 days. Patient follow with her primary care physician. She can return the emergency Department with worsening symptoms if necessary. Med/Other Pt SpecificInfo: Prescription(s) given Scripts Omeprazole 40 Mg Cap40 Mg PO DAILY #30 CAP Prov:Elza Patel MD 08/17/16 Sucralfate (Carafate)1 Gm Tab1 Gm PO TID 7 Days Ref 0 On empty stomach Prov:Elza Patel MD 08/17/16 Disposition: DISCHARGE HOME Condition: Stable Elroy Diallo Aug 17, 2016 14:37
[2016-08-17] MEDS ORDERED: SODIUM CHLOR 0.9% 1000 ML INJ 1,000 ML IV SCH (14:40)
[2016-08-17] MEDS ORDERED: ALUMINUM/MAGNESIUM/SIMETH 30 ML CUP PO ONE (14:45)
[2016-08-17] MEDS ORDERED: PANTOPRAZOLE SODIUM 40 MG VIAL IVP ONE (14:45)
[2016-08-17] MEDS ORDERED: ONDANSETRON HCL 4 MG/2 ML VIAL IVP ONE (14:45)
[2016-08-17] MEDS ORDERED: MORPHINE SULFATE 4 MG/ML INJ IV PUSH ONE (14:45)
[2016-08-17] MEDS ORDERED: LIDOCAINE VISCOUS 2% SOLN 15 ML UDC PO ONE (14:45)
[2016-08-17] MEDS ORDERED: SODIUM CHLORIDE 0.9% FLUSH 10 ML FLUSH IV FLUSH PRN (14:45)
[2016-08-17 15:54] VITALS: RESP 16
[2016-08-17 17:55] LABS: AUTOMATED NEUTROPHIL # 8.2 TH/MM3 (1.8-7.7); BASOPHIL # 0.1 TH/MM3 (0-0.2); BASOPHIL % 0.7 % (0.0-2.0); HEMATOCRIT 43.3 % (35.0-46.0); HEMO FLAGS DIFF FINAL; LYMPH % 7.7 % (9.0-44.0); LYMPHOCYTE # 0.7 TH/MM3 (1.0-4.8); MEAN CELL VOLUME 91.8 FL (80.0-100.0); MEAN CORPUSCULAR HGB CONC 33.7 % (32.0-36.0); MONO % 2.4 % (0.0-8.0); NEUT % 89.2 % (16.0-70.0); PLATELET COUNT 305 TH/MM3 (150-450); RED BLOOD COUNT 4.71 MIL/MM3 (4.00-5.30); WHITE BLOOD COUNT 9.2 TH/MM3 (4.0-11.0)
[2016-08-17 18:15] LABS: ALKALINE PHOSPHATASE 50 U/L (45-117); TOTAL BILIRUBIN ADULT 0.4 MG/DL (0.2-1.0)
[2016-08-17 18:16] LABS: ALT (GPT) 15 U/L (10-53); ANION GAP 13 MEQ/L (5-15); AST (GOT) 18 U/L (15-37); BICARBONATE 25.9 MEQ/L (21.0-32.0); BLOOD UREA NITROGEN 16 MG/DL (7-18); CHLORIDE 102 MEQ/L (98-107); GLOMERULAR FILTRATION RATE 60 ML/MIN (>89); POTASSIUM 3.3 MEQ/L (3.5-5.1); SODIUM (NA) 141 MEQ/L (136-145)
[2016-08-17] MEDS ORDERED: OMEP40CA2 PO (18:20)
[2016-08-17] MEDS ORDERED: CARA1TAB6 PO (18:20)
[2016-08-17 18:53] VITALS: O2SAT 99
== END 2016-08-17 18:53 | disposition home or self-care (01) ==
LOC: NEPD 12:17
DX: R10.13 Epigastric pain (principal); K29.70 Gastritis, unspecified, without bleeding; M13.80 Other specified arthritis, unspecified site; F41.9 Anxiety disorder, unspecified; I10 Essential (primary) hypertension; K21.9 Gastro-esophageal reflux disease without esophagitis; Z79.899 Other long term (current) drug therapy
CPT/HCPCS: 76937; 80053; 83690; 85025; 96374; 96375; 99284; C9113; J2270; J2405; J7030

== ENCOUNTER 2016-09-24 05:27 | Emergency (ER) | payer MEDICARE, OTHER ==
[~2016-09-24] VITALS: Ht 157.5 cm; Wt 63.6 kg
[~2016-09-24 05:27] MED LIST changes: +OMEP40CA2 PO
[2016-09-24 05:30] VITALS: BP 192/96; PULSE 66; RESP 22; TEMP 98.7; O2SAT 99
[2016-09-24] MEDS ORDERED: SODIUM CHLOR 0.9% 1000 ML INJ 1,000 ML IV SCH (05:34)
[2016-09-24] MEDS ORDERED: HYDR50TA3 PO (05:35)
[2016-09-24] MEDS ORDERED: HYDR-3583 PO (05:35)
[2016-09-24] MEDS ORDERED: SODIUM CHLORIDE 0.9% FLUSH 10 ML FLUSH IV FLUSH PRN (05:45)
[2016-09-24] MEDS ORDERED: ONDANSETRON HCL 4 MG/2 ML VIAL IVP ONE ×2 (05:45→06:30)
[2016-09-24] MEDS ORDERED: FAMOTIDINE 20 MG/2 ML VIAL IV PUSH ONE (05:45)
[2016-09-24 05:51] LABS: AUTOMATED NEUTROPHIL # 2.7 TH/MM3 (1.8-7.7); BASOPHIL % 1.1 % (0.0-2.0); EOSINOPHIL % 0.5 % (0.0-4.0); HEMATOCRIT 45.7 % (35.0-46.0); HEMO FLAGS DIFF FINAL; LYMPHOCYTE # 1.5 TH/MM3 (1.0-4.8); MEAN CELL VOLUME 92.6 FL (80.0-100.0); MEAN CORPUSCULAR HEMOGLOBIN 31.4 PG (27.0-34.0); MONO % 8.2 % (0.0-8.0); NEUT % 58.2 % (16.0-70.0); PLATELET COUNT 323 TH/MM3 (150-450); RED BLOOD COUNT 4.94 MIL/MM3 (4.00-5.30); RED CELL DISTRIBUTION WIDTH 13.9 % (11.6-17.2); WHITE BLOOD COUNT 4.7 TH/MM3 (4.0-11.0)
--- NOTE | 2016-09-24 05:51 | PD ---
HPI Chief Complaint: Abdominal Pain Time Seen by Provider: 05:34 Travel History International Travel<30 days: No Contact w/Intl Traveler<30days: No Traveled to known affect area: No History of Present Illness HPI 66-year-old female with history of gastritis, pancreatitis, hypertension, chronic abdominal pains, presents to the ER today because of epigastric abdominal pain which she currently states is a 10 out of 10. She has been nauseous and vomiting. She denies any diarrhea, fevers, or any other symptoms. She states is like her previous episodes of abdominal pains. She states she has been taking her gastritis medications without significant relief. Modifying Factors: None Associated Signs & Symptoms: Epigastric abdominal pain and nausea and vomiting Risk Factors: History of chronic abdominal pains, gastritis PFSH Past Medical History Arthritis: Yes Asthma: No Autoimmune Disease: No Blood Disorders: No Anxiety: Yes Depression: No Heart Rhythm Problems: No Cancer: No Cardiovascular Problems: Yes (HTN) High Cholesterol: No Chest Pain: No Congestive Heart Failure: No COPD: No Diabetes: No Diminished Hearing: No Endocrine: No Gastrointestinal Disorders: Yes (chronic gastritis ) GERD: Yes Genitourinary: No Hiatal Hernia: No Hypertension: Yes Immune Disorder: No Musculoskeletal: No Neurologic: No Psychiatric: Yes Reproductive: No Respiratory: No Immunizations Current: Yes Thyroid Disease: No Ulcer: Yes Tetanus Vaccination: > 5 Years Influenza Vaccination: No PNEUMOCCOCAL Vaccine (Year): 2 Menopausal: Yes : 3 Para: 3 Miscarriage: 0 : 0 Tubal Ligation: Yes (1978) Past Surgical History AICD: No Gynecologic Surgery: Yes Hysterectomy: Yes Pacemaker: No Other Surgery: Yes Social History Alcohol Use: No (HX -NOT CURRENT) Tobacco Use: No Substance Use: No Allergies-Medications (Allergen,Severity, Reaction): Coded Allergies: No Known Allergies (Verified , 08/17/16) Reported Meds & Prescriptions Reported Meds & Active Scripts Active Omeprazole 40 Mg Cap 40 Mg PO DAILY Protonix (Pantoprazole Sodium) 40 Mg Tab 40 Mg PO DAILY Reported Hydrocodone-Acetaminophen 10-325 mg Tab 1 Tab PO Q6H PRN Hydrochlorothiazide 50 Mg Tab 50 Mg PO DAILY Xarelto (Rivaroxaban) 20 Mg Tab 20 Mg PO DAILY Meclizine (Meclizine HCl) 25 Mg Tab 25 Mg PO TID PRN Gabapentin 300 Mg Cap 300 Mg PO DAILY Lorazepam 1 Mg Tab 1 Mg PO TID PRN Clonidine (Clonidine HCl) 0.1 Mg Tab 0.1 Mg PO BID Review of Systems Except as stated in HPI: all other systems reviewed are Neg Physical Exam Narrative GENERAL: Well-developed elderly -[place] female patient currently in moderate distress. Appears anxious. Awake and oriented 3. SKIN: Focused skin assessment warm/dry. HEAD: Atraumatic. Normocephalic. EYES: Pupils equal and round. No scleral icterus. No injection or drainage. ENT: No nasal bleeding or discharge. Mucous membranes pink and moist. NECK: Trachea midline. No JVD. CARDIOVASCULAR: Regular rate and rhythm. No murmur appreciated. RESPIRATORY: No accessory muscle use. Clear to auscultation. Breath sounds equal bilaterally. GASTROINTESTINAL: Abdomen soft, mild epigastric tenderness without guarding or rebound, nondistended. Hepatic and splenic margins not palpable. MUSCULOSKELETAL: No obvious deformities. No clubbing. No cyanosis. No edema. NEUROLOGICAL: Awake and alert. No obvious cranial nerve deficits. Motor grossly within normal limits. Normal speech. PSYCHIATRIC: Appropriate mood and affect; insight and judgment normal. Data Data Last Documented VS Vital Signs Date Time Temp Pulse Resp B/P Pulse Ox O2 Delivery O2 Flow Rate FiO2 09/24/16 06:11 56 168/88 100 Room Air 09/24/16 05:30 98.7 22 Orders Complete Blood Count With Diff (09/24/16 05:34) Comprehensive Metabolic Panel (09/24/16 05:34) Lipase (09/24/16 05:34) Iv Access Insert/Monitor (09/24/16 05:34) Ecg Monitoring (09/24/16 05:34) Oximetry (09/24/16 05:34) Ondansetron Inj (Zofran Inj) (09/24/16 05:45) Sodium Chlor 0.9% 1000 Ml Inj (Ns 1000 M (09/24/16 05:34) Sodium Chloride 0.9% Flush (Ns Flush) (09/24/16 05:45) Electrocardiogram (09/24/16 05:34) Chest, Single Ap (09/24/16 05:34) Famotidine Inj (Pepcid Inj) (09/24/16 05:45) Morphine Inj (Morphine Inj) (09/24/16 06:30) Ondansetron Inj (Zofran Inj) (09/24/16 06:30) Al-Mag Hy-Si 40-40-4 Mg/Ml Liq (Mag-Al P (09/24/16 06:30) Lidocaine 2% Viscous (Xylocaine 2% Visco (09/24/16 06:30) Dicyclomine Inj (Bentyl Inj) (09/24/16 07:00) Labs Laboratory Tests Test 09/24/16 05:40 White Blood Count 4.7 TH/MM3 Red Blood Count 4.94 MIL/MM3 Hemoglobin 15.5 GM/DL Hematocrit 45.7 % Mean Corpuscular Volume 92.6 FL Mean Corpuscular Hemoglobin 31.4 PG Mean Corpuscular Hemoglobin 34.0 % Concent Red Cell Distribution Width 13.9 % Platelet Count 323 TH/MM3 Mean Platelet Volume 8.0 FL Neutrophils (%) (Auto) 58.2 % Lymphocytes (%) (Auto) 32.0 % Monocytes (%) (Auto) 8.2 % Eosinophils (%) (Auto) 0.5 % Basophils (%) (Auto) 1.1 % Neutrophils # (Auto) 2.7 TH/MM3 Lymphocytes # (Auto) 1.5 TH/MM3 Monocytes # (Auto) 0.4 TH/MM3 Eosinophils # (Auto) 0.0 TH/MM3 Basophils # (Auto) 0.0 TH/MM3 CBC Comment DIFF FINAL Differential Comment Sodium Level 138 MEQ/L Potassium Level 3.2 MEQ/L Chloride Level 103 MEQ/L Carbon Dioxide Level 24.8 MEQ/L Anion Gap 10 MEQ/L Blood Urea Nitrogen 14 MG/DL Creatinine 0.98 MG/DL Estimat Glomerular Filtration 68 ML/MIN Rate Random Glucose 104 MG/DL Calcium Level 9.4 MG/DL Total Bilirubin 0.6 MG/DL Aspartate Amino Transf 12 U/L (AST/SGOT) Alanine Aminotransferase 12 U/L (ALT/SGPT) Alkaline Phosphatase 46 U/L Total Protein 7.8 GM/DL Albumin 4.0 GM/DL Lipase 123 U/L [facility] Medical Decision Making Medical Screen Exam Complete: Yes Emergency Medical Condition: Yes Medical Record Reviewed: Yes Interpretation(s) EKG shows sinus bradycardia rate 52 bpm with no signs of acute ST-T changes. Laboratory Tests Test 09/24/16 05:40 Hemoglobin 15.5 GM/DL (11.6-15.3) Monocytes (%) (Auto) 8.2 % (0.0-8.0) Potassium Level 3.2 MEQ/L (3.5-5.1) Estimat Glomerular Filtration 68 ML/MIN (>89) Rate Aspartate Amino Transf 12 U/L (15-37) (AST/SGOT) Last 24 hours Impressions Chest X-Ray 09/24/16 0534 Signed Impressions: Service Date/Time: September 05:37 - CONCLUSION: No acute disease. Steven Peterson MD Differential Diagnosis Abdominal pain, nausea and vomitinggastritis versus pancreatitis versus gastroenteritis versus anxiety versus acute on chronic abdominal pain Narrative Course X-ray did not show any signs of free air. Abdomen is fairly benign. Patient has been in multiple times for similar symptoms. She was given acid blocking medication, Zofran, IV fluids and GI cocktail the ER. Lab work did not indicate significant metabolic issues. She does not have signs of lipase elevations indicative of pancreatitis. She did not have any further episodes of vomiting in the ER although she is quite anxious and is asking me to inject the morphine directly into the IV hub rather than through the line with IV fluids. She states that it goes "directly to the stomach that way". She states that that is the only thing that helps. At this point, plan would be to release her with further symptomatic relief or gastritis. Return for any worsening in symptoms as needed. The plan has discussed with her and she states understanding. Diagnosis Primary Impression: Gastritis Additional Impression: Hypokalemia Med/Other Pt SpecificInfo: Prescription(s) given Scripts Ondansetron Odt (Zofran Odt)4 Mg Tab4 Mg SL Q6HR PRN (Nausea/Vomiting) #7 TAB Ref 0 Prov:Thao Wright MD 09/24/16 Potassium Chloride ER (K-Tab)20 Meq Tab20 Meq PO BID #10 TAB Ref 0 Prov:Thao Wright MD 09/24/16 Disposition: DISCHARGE HOME Condition: Stable Thao Wright MD Sep 24, 2016 05:51
[2016-09-24 06:11] VITALS: BP 168/88; PULSE 56; O2SAT 100
--- NOTE | 2016-09-24 06:14 | RADRPT ---
EXAM DATE/TIME: 09/24/2016 05:37 [facility] COMPARISON: CHEST SINGLE AP, December 25, 2015, 4:39. INDICATIONS : Short of breath. MEDICAL HISTORY : Hypertension. Gastroesophageal reflux disease. . Chronic gastritis. Ulcer Arthritis. Anxiety . SURGICAL HISTORY : Hysterectomy. Tubal ligation ENCOUNTER: Initial ACUITY: 1 day PAIN SCORE: 8/10 LOCATION: Bilateral chest FINDINGS: A single view of the chest demonstrates the lungs to be symmetrically aerated without evidence of mas s, infiltrate or effusion. The cardiomediastinal contours are unremarkable. Osseous structures are intact. CONCLUSION: No acute disease. Steven Peterson MD on September 24, 2016 at 6:12 Board Certified Radiologist. This report was verified electronically.
[2016-09-24 06:18] LABS: ANION GAP 10 MEQ/L (5-15); AST (GOT) 12 U/L (15-37); BICARBONATE 24.8 MEQ/L (21.0-32.0); BLOOD UREA NITROGEN 14 MG/DL (7-18); CHLORIDE 103 MEQ/L (98-107); GLOMERULAR FILTRATION RATE 68 ML/MIN (>89); POTASSIUM 3.2 MEQ/L (3.5-5.1); SODIUM (NA) 138 MEQ/L (136-145)
[2016-09-24 06:19] LABS: ALT (GPT) 12 U/L (10-53)
[2016-09-24 06:21] LABS: ALKALINE PHOSPHATASE 46 U/L (45-117); TOTAL BILIRUBIN ADULT 0.6 MG/DL (0.2-1.0)
[2016-09-24] MEDS ORDERED: LIDOCAINE VISCOUS 2% SOLN 15 ML UDC PO ONE (06:30)
[2016-09-24] MEDS ORDERED: MORPHINE SULFATE 4 MG/ML INJ IV PUSH ONE (06:30)
[2016-09-24] MEDS ORDERED: ALUMINUM/MAGNESIUM/SIMETH 30 ML CUP PO ONE (06:30)
[2016-09-24] MEDS ORDERED: DICYCLOMINE HCL 20 MG/2 ML VIAL IM ONE (07:00)
[2016-09-24] MEDS ORDERED: POTA1TAB4 PO (07:15)
[2016-09-24] MEDS ORDERED: ZOFR4TAB3 SL (07:15)
--- NOTE | 2016-09-24 14:54 | EKG ---
Date Performed: 09/24/2016 Time Performed: 05:59:08 PTAGE: 66 years EKG: SINUS BRADYCARDIA BORDERLINE ECG PREVIOUS TRACING 04/06/2016 09.00.38 Since previous tracing, no significant change noted DOCTOR: Madie Webster Interpretating Date/Time 09/24/2016 14:53:29
== END 2016-09-24 07:53 | disposition home or self-care (01) ==
LOC: NEPC 05:27
DX: K29.70 Gastritis, unspecified, without bleeding (principal); E87.6 Hypokalemia; K21.9 Gastro-esophageal reflux disease without esophagitis; I10 Essential (primary) hypertension; R00.1 Bradycardia, unspecified; M19.90 Unspecified osteoarthritis, unspecified site; F41.9 Anxiety disorder, unspecified
CPT/HCPCS: 71010; 80053; 83690; 85025; 93005; 96361; 96372; 96374; 96375; 96376; 99285; J0500; J2270; J2405; J7030

== ENCOUNTER 2016-10-16 09:01 | Emergency (ER) | payer MEDICARE, OTHER ==
[~2016-10-16] VITALS: Ht 157.5 cm; Wt 65.0 kg
[~2016-10-16 09:01] MED LIST changes: -CARA1TAB6 PO; +HYDR-3583 PO; +HYDR50TA3 PO; +POTA1TAB4 PO; +ZOFR4TAB3 SL
[2016-10-16 09:03] VITALS: BP 199/84; PULSE 71; RESP 15; TEMP 98.4; O2SAT 98
[2016-10-16] MEDS ORDERED: ONDANSETRON HCL 4 MG/2 ML VIAL ONE (09:41)
[2016-10-16] MEDS ORDERED: SODIUM CHLOR 0.9% 1000 ML INJ 1,000 ML IV SCH (10:13)
[2016-10-16] MEDS ORDERED: SODIUM CHLORIDE 0.9% FLUSH 10 ML FLUSH IV FLUSH PRN (10:15)
[2016-10-16] MEDS ORDERED: ONDANSETRON HCL 4 MG/2 ML VIAL IV ONE ×2 (10:15→10:30)
[2016-10-16] MEDS ORDERED: LIDOCAINE VISCOUS 2% SOLN 15 ML UDC PO ONE (10:15)
[2016-10-16] MEDS ORDERED: ALUMINUM/MAGNESIUM/SIMETH 30 ML CUP PO ONE (10:15)
[2016-10-16] MEDS ORDERED: PANTOPRAZOLE SODIUM 40 MG VIAL IV PUSH ONE (10:15)
[2016-10-16 10:33] VITALS: BP 185/85; PULSE 54; RESP 16; O2SAT 99
[2016-10-16 10:50] LABS: EOSINOPHIL % 0.8 % (0.0-4.0); HEMATOCRIT 45.3 % (35.0-46.0); HEMO FLAGS DIFF FINAL; LYMPH % 26.2 % (9.0-44.0); LYMPHOCYTE # 1.2 TH/MM3 (1.0-4.8); MEAN CELL VOLUME 94.8 FL (80.0-100.0); MEAN CORPUSCULAR HEMOGLOBIN 31.3 PG (27.0-34.0); MONO % 5.9 % (0.0-8.0); NEUT % 66.1 % (16.0-70.0); PLATELET COUNT 323 TH/MM3 (150-450); RED BLOOD COUNT 4.78 MIL/MM3 (4.00-5.30); RED CELL DISTRIBUTION WIDTH 14.8 % (11.6-17.2); WHITE BLOOD COUNT 4.6 TH/MM3 (4.0-11.0)
[2016-10-16 11:16] LABS: ANION GAP 10 MEQ/L (5-15); AST (GOT) 9 U/L (15-37); BICARBONATE 23.4 MEQ/L (21.0-32.0); BLOOD UREA NITROGEN 13 MG/DL (7-18); CHLORIDE 104 MEQ/L (98-107); GLOMERULAR FILTRATION RATE 76 ML/MIN (>89); POTASSIUM 3.5 MEQ/L (3.5-5.1); SODIUM (NA) 137 MEQ/L (136-145)
[2016-10-16 11:17] LABS: ALT (GPT) 13 U/L (10-53)
[2016-10-16 11:19] LABS: ALKALINE PHOSPHATASE 48 U/L (45-117); TOTAL BILIRUBIN ADULT 0.4 MG/DL (0.2-1.0)
[2016-10-16] MEDS ORDERED: ZOFR4TAB3 SL (11:54)
[2016-10-16] MEDS ORDERED: OMEP40CA2 PO (11:54)
--- NOTE | 2016-10-16 11:55 | PD ---
HPI Chief Complaint: GI Complaint Time Seen by Provider: 10:02 Travel History International Travel<30 days: No Contact w/Intl Traveler<30days: No Traveled to known affect area: No History of Present Illness HPI 66 year-old woman presents to the emergency department complaining of abdominal pain. She is a history of chronic gastritis. She states it's worse over the past 2 days after she had a hamburger. It's been bothering her she's been having vomiting as well as some diarrhea. Pain is severe. History Past Medical History Narrative Medical Chronic gastritis Hypertension Anxiety and depression Opiate dependency misuse Influenza Vaccination: No PNEUMOCCOCAL Vaccine (Year): 2 Menopausal: Yes : 3 Para: 3 Social History Alcohol Use: No (HX -NOT CURRENT) Tobacco Use: No Allergies-Medications (Allergen,Severity, Reaction): Coded Allergies: No Known Allergies (Verified , 10/16/16) Reported Meds & Prescriptions Reported Meds & Active Scripts Active Reported Xarelto (Rivaroxaban) 20 Mg Tab 20 Mg PO DAILY Lorazepam 1 Mg Tab 1 Mg PO TID PRN Clonidine (Clonidine HCl) 0.1 Mg Tab 0.1 Mg PO BID Review of Systems Except as stated in HPI: all other systems reviewed are Neg Physical Exam Narrative GENERAL: Well-appearing 58 year-old woman, uncomfortable, nontoxic. SKIN: Focused skin assessment warm/dry. HEAD: Atraumatic. Normocephalic. EYES: Pupils equal and round. No scleral icterus. No injection or drainage. ENT: No nasal bleeding or discharge. Mucous membranes pink and moist. NECK: Trachea midline. No JVD. CARDIOVASCULAR: Admits flat and soft. Some epigastric tenderness. No rebound or guarding. RESPIRATORY: No accessory muscle use. Clear to auscultation. Breath sounds equal bilaterally. GASTROINTESTINAL: Abdomen soft, non-tender, nondistended. Hepatic and splenic margins not palpable. MUSCULOSKELETAL: No obvious deformities. No edema. NEUROLOGICAL: Awake and alert. No obvious cranial nerve deficits. Motor grossly within normal limits. Normal speech. PSYCHIATRIC: Appropriate mood and affect; insight and judgment normal. Data Data Last Documented VS Vital Signs Date Time Temp Pulse Resp B/P (MAP) Pulse Ox O2 Delivery O2 Flow Rate FiO2 10/16/16 10:33 54 16 185/85 (118) 99 Room Air 10/16/16 09:03 98.4 Orders Orders Ondansetron Inj (Zofran Inj) (10/16/16 09:41) Complete Blood Count With Diff (10/16/16 10:13) Comprehensive Metabolic Panel (10/16/16 10:13) Lipase (10/16/16 10:13) Iv Access Insert/Monitor (10/16/16 10:13) Sodium Chloride 0.9% Flush (Ns Flush) (10/16/16 10:15) Ondansetron Inj (Zofran Inj) (10/16/16 10:15) Pantoprazole Inj (Protonix Inj) (10/16/16 10:15) Sodium Chlor 0.9% 1000 Ml Inj (Ns 1000 M (10/16/16 10:13) Al-Mag Hy-Si 40-40-4 Mg/Ml Liq (Mag-Al P (10/16/16 10:15) Lidocaine 2% Viscous (Xylocaine 2% Visco (10/16/16 10:15) Ondansetron Inj (Zofran Inj) (10/16/16 10:30) Labs Laboratory Tests Test 10/16/16 10:27 White Blood Count 4.6 TH/MM3 Red Blood Count 4.78 MIL/MM3 Hemoglobin 15.0 GM/DL Hematocrit 45.3 % Mean Corpuscular Volume 94.8 FL Mean Corpuscular Hemoglobin 31.3 PG Mean Corpuscular Hemoglobin Concent 33.0 % Red Cell Distribution Width 14.8 % Platelet Count 323 TH/MM3 Mean Platelet Volume 8.9 FL Neutrophils (%) (Auto) 66.1 % Lymphocytes (%) (Auto) 26.2 % Monocytes (%) (Auto) 5.9 % Eosinophils (%) (Auto) 0.8 % Basophils (%) (Auto) 1.0 % Neutrophils # (Auto) 3.0 TH/MM3 Lymphocytes # (Auto) 1.2 TH/MM3 Monocytes # (Auto) 0.3 TH/MM3 Eosinophils # (Auto) 0.0 TH/MM3 Basophils # (Auto) 0.0 TH/MM3 CBC Comment DIFF FINAL Differential Comment Blood Urea Nitrogen 13 MG/DL Creatinine 0.89 MG/DL Random Glucose 113 MG/DL Total Protein 7.9 GM/DL Albumin 3.9 GM/DL Calcium Level 9.4 MG/DL Alkaline Phosphatase 48 U/L Aspartate Amino Transf (AST/SGOT) 9 U/L Alanine Aminotransferase (ALT/SGPT) 13 U/L Total Bilirubin 0.4 MG/DL Sodium Level 137 MEQ/L Potassium Level 3.5 MEQ/L Chloride Level 104 MEQ/L Carbon Dioxide Level 23.4 MEQ/L Anion Gap 10 MEQ/L Estimat Glomerular Filtration Rate 76 ML/MIN Lipase 118 U/L [facility] Medical Decision Making Medical Screen Exam Complete: Yes Emergency Medical Condition: Yes Differential Diagnosis Chronic gastritis, pancreatitis, other Narrative Course Medical decision making This is a 58 year-old woman chronic abdominal pain attributed to gastritis. She has multiple visits for this in the past. She is on PPIs. She endorses not being on any pain medication but certainly the prescription database show she is on chronic opiates. She states she is out now. She received 100 2020 days ago. This was suggest misuse also. At this point I feel continued use of parenteral opiates would only worsen her problems. We did give her multiple medications for nausea vomiting and acid medication. She'll be discharged for outpatient follow-up. She pulled her IV out. Diagnosis Primary Impression: Abdominal pain Additional Impression: Opiate misuse Additional Instructions: Continue medications as prescribed. Follow-up with her primary doctor for refill of her chronic opiates. Med/Other Pt SpecificInfo: Prescription(s) given Scripts Omeprazole (Omeprazole) 40 Mg Cap 40 MG PO DAILY, #30 CAP Prov: Yosi Palma MD 10/16/16 Ondansetron Odt (Zofran Odt) 4 Mg Tab 4 MG SL Q6HR Y for Nausea/Vomiting, #7 TAB 0 Refills Prov: Yosi Palma MD 10/16/16 Disposition: 01 DISCHARGE HOME Condition: Stable Yosi Palma MD Oct 16, 2016 11:55
[2016-10-16] MEDS ORDERED: DICYCLOMINE HCL 20 MG/2 ML VIAL IM ONE (12:00)
[2016-10-16] MEDS ORDERED: PROMETHAZINE INJ 25 MG/ML VIAL IM ONE (12:00)
== END 2016-10-16 12:37 | disposition home or self-care (01) ==
LOC: NEPD 09:01
DX: K29.70 Gastritis, unspecified, without bleeding (principal); F11.10 Opioid abuse, uncomplicated; R11.2 Nausea with vomiting, unspecified; R19.7 Diarrhea, unspecified; I10 Essential (primary) hypertension; F41.9 Anxiety disorder, unspecified; F32.9 Major depressive disorder, single episode, unspecified; Z79.899 Other long term (current) drug therapy
CPT/HCPCS: 80053; 83690; 85025; 96361; 96372; 96374; 96375; 99284; C9113; J0500; J2405; J2550; J7030

== ENCOUNTER 2016-11-16 22:30 | Emergency (ER) | payer MEDICARE, OTHER ==
[~2016-11-16] VITALS: Ht 157.5 cm; Wt 65.5 kg
[~2016-11-16 22:30] MED LIST changes: -GABA300C5 PO; -HYDR-3583 PO; -HYDR50TA3 PO; -MECL-62 PO; -POTA1TAB4 PO; -PROT40TA PO
[2016-11-16 22:38] VITALS: BP 191/87; PULSE 59; RESP 18; TEMP 98.4; O2SAT 99
[2016-11-16] MEDS ORDERED: SODIUM CHLOR 0.9% 1000 ML INJ 1,000 ML IV ONE (23:00)
--- NOTE | 2016-11-16 23:33 | PD ---
HPI Chief Complaint: Abdominal Pain Time Seen by Provider: 22:53 Travel History International Travel<30 days: No Contact w/Intl Traveler<30days: No Traveled to known affect area: No History of Present Illness HPI The patient is a 66 year old female who presents to the [facility] emergency department with a history of midepigastric abdominal pain that began Michael AM. She has had n/v too many to count. She has had diarrhea x4 today. She reports that she has had a fever today with a tmax of 102 this morning. The patient reports that the pain is a 10 out of 10 in severity. She reports that it has been constant since this morning. She reports that the pain is a sharp sensation. She denies any alleviating or aggravating factors other then eating food seems to make it worse. The patient reports a long-standing history of problems with gastritis. She cannot recall the name of her per diem clerk or the medication that she is currently taking for this, however she reports that she has been taking her medications as prescribed. On review of systems otherwise, the patient denies any recent cough, congestion, neck pain, chest pain, shortness of breath, urinary symptoms, or neurologic symptoms. [facility] Past Medical History Narrative Medical The patient's past medical history is significant for chronic gastritis, hypertension, peptic ulcer disease, acid reflux, fibroid tumors of the uterus, anxiety disorder. Arthritis: Yes Asthma: No Autoimmune Disease: No Blood Disorders: No Anxiety: Yes Depression: No Heart Rhythm Problems: No Cancer: No Cardiovascular Problems: Yes (HTN) High Cholesterol: No Chest Pain: No Congestive Heart Failure: No COPD: No Diabetes: No Diminished Hearing: No Endocrine: No Gastrointestinal Disorders: Yes (chronic gastritis ) GERD: Yes Genitourinary: No Hiatal Hernia: No Hypertension: Yes Immune Disorder: No Musculoskeletal: No Neurologic: No Psychiatric: Yes Reproductive: No Respiratory: No Immunizations Current: Yes Thyroid Disease: No Ulcer: Yes Influenza Vaccination: No PNEUMOCCOCAL Vaccine (Year): 2 Menopausal: Yes : 3 Para: 3 Miscarriage: 0 : 0 Tubal Ligation: Yes (1978) Past Surgical History Narrative Surgical The patient's past surgical history is significant for bilateral tubal ligation , EGD findings consistent with gastritis and a Schatzki's ring AICD: No Gynecologic Surgery: Yes Hysterectomy: Yes Pacemaker: No Other Surgery: Yes Social History Alcohol Use: No (HX -NOT CURRENT) Tobacco Use: No Substance Use: No Allergies-Medications (Allergen,Severity, Reaction): Coded Allergies: codeine (Verified Allergy, Severe, 11/16/16) VOMITING Reported Meds & Prescriptions Reported Meds & Active Scripts Active Omeprazole 40 Mg Cap 40 Mg PO DAILY Zofran Odt (Ondansetron Odt) 4 Mg Tab 4 Mg SL Q6HR PRN Reported Xarelto (Rivaroxaban) 20 Mg Tab 20 Mg PO DAILY Lorazepam 1 Mg Tab 1 Mg PO TID PRN Clonidine (Clonidine HCl) 0.1 Mg Tab 0.1 Mg PO BID Review of Systems Except as stated in HPI: all other systems reviewed are Neg General / Constitutional: Positive: Fever Eyes: No: Visual changes HENT: No: Headaches Cardiovascular: No: Chest Pain or Discomfort Respiratory: No: Shortness of Breath Gastrointestinal: Positive: Nausea, Vomiting, Diarrhea, Abdominal Pain, Changes in Bowel Habits, Indigestion, No: Hematemesis, Hematochezia, Constipation, Loss of Appetite Genitourinary: No: Dysuria Musculoskeletal: No: Pain Skin: No Rash Neurologic: No: Weakness Psychiatric: No: Depression Endocrine: No: Polydipsia Hematologic/Lymphatic: No: Easy Bruising Physical Exam Narrative General: The patient is well-developed well-nourished female, uncomfortable appearing on arrival, intermittent dry heaving. Head and Neck exam: Head is normocephalic atraumatic. Eyes: EOMI, pupils are equal round and reactive to light. Nose: Midline septum with pink mucous membranes Mouth: Dentition unremarkable. Moist mucus membranes. Posterior oropharynx is not erythematous. No tonsillar hypertrophy. Uvula midline. Airway patent. Neck: No palpable lymphadenopathy. No nuchal rigidity. No thyromegaly. Cardiovascular: Regular rate and rhythm without murmurs, gallops, or rubs. No pulse deficit to the extremities on simultaneous auscultation and palpation of her radial artery. Lungs: Clear to auscultation bilaterally. No wheezes, rhonchi, or rales. Abdomen: Soft, with discomfort on palpation of the midepigastric area, no other tenderness on palpation of the other quadrants of the abdomen. No guarding, rebound, or rigidity. Normal bowel sounds are audible. No tenderness on palpation of McBurney's point. Negative Bach's sign. Extremities: No clubbing, cyanosis, or edema. 2+ pulses in all 4 extremities. No calf tenderness on palpation. Back: No spinous process tenderness to palpation. No costovertebral angle tenderness to palpation. Neurologic Exam: Grossly nonfocal Skin Exam: No rash noted. Intact skin that is warm and dry. Data Data Last Documented VS Vital Signs Date Time Temp Pulse Resp B/P (MAP) Pulse Ox O2 Delivery O2 Flow Rate FiO2 11/17/16 00:21 96 11/16/16 22:38 98.4 59 18 191/87 (121) Orders Orders Electrocardiogram (11/16/16 22:57) Complete Blood Count With Diff (11/16/16 22:57) Comprehensive Metabolic Panel (11/16/16 22:57) Troponin I (11/16/16 22:57) C-Reactive Protein (Crp) (11/16/16 22:57) Lipase (11/16/16 22:57) Urinalysis - C+S If Indicated (11/16/16 22:57) Magnesium (Mg) (11/16/16 22:57) Chest, Single Ap (11/16/16 22:57) Iv Access Insert/Monitor (11/16/16 22:57) Ecg Monitoring (11/16/16 22:57) Oximetry (11/16/16 22:57) Lactic Acid (11/16/16 22:57) Sodium Chlor 0.9% 1000 Ml Inj (Ns 1000 M (11/16/16 23:00) Urine Culture (11/16/16 23:45) Morphine Inj (Morphine Inj) (11/17/16 00:45) Prochlorperazine Inj (Compazine Inj) (11/17/16 00:45) Pantoprazole Inj (Protonix Inj) (11/17/16 00:45) Ceftriaxone Inj (Rocephin Inj) (11/17/16 02:15) Labs Laboratory Tests Test 11/16/16 23:30 11/16/16 23:45 11/17/16 01:23 White Blood Count 5.7 TH/MM3 Red Blood Count 4.26 MIL/MM3 Hemoglobin 13.6 GM/DL Hematocrit 39.8 % Mean Corpuscular Volume 93.4 FL Mean Corpuscular Hemoglobin 31.9 PG Mean Corpuscular Hemoglobin Concent 34.1 % Red Cell Distribution Width 14.8 % Platelet Count 290 TH/MM3 Mean Platelet Volume 9.3 FL Neutrophils (%) (Auto) 57.5 % Lymphocytes (%) (Auto) 31.5 % Monocytes (%) (Auto) 8.8 % Eosinophils (%) (Auto) 0.6 % Basophils (%) (Auto) 1.6 % Neutrophils # (Auto) 3.3 TH/MM3 Lymphocytes # (Auto) 1.8 TH/MM3 Monocytes # (Auto) 0.5 TH/MM3 Eosinophils # (Auto) 0.0 TH/MM3 Basophils # (Auto) 0.1 TH/MM3 CBC Comment DIFF FINAL Differential Comment Blood Urea Nitrogen 13 MG/DL Creatinine 0.85 MG/DL Random Glucose 107 MG/DL Total Protein 7.0 GM/DL Albumin 3.3 GM/DL Calcium Level 8.8 MG/DL Magnesium Level 1.8 MG/DL Alkaline Phosphatase 38 U/L Aspartate Amino Transf (AST/SGOT) 28 U/L Alanine Aminotransferase (ALT/SGPT) 8 U/L Total Bilirubin 0.5 MG/DL Sodium Level 141 MEQ/L Potassium Level 4.5 MEQ/L Chloride Level 111 MEQ/L Carbon Dioxide Level 24.0 MEQ/L Anion Gap 6 MEQ/L Estimat Glomerular Filtration Rate 80 ML/MIN Troponin I LESS THAN 0.02 NG/ML C-Reactive Protein LESS THAN 0.29 MG/DL Lipase 109 U/L Urine Color YELLOW Urine Turbidity HAZY Urine pH 5.5 Urine Specific [place] 1.028 Urine Protein TRACE mg/dL Urine Glucose (UA) NEG mg/dL Urine Ketones NEG mg/dL Urine Occult Blood SMALL Urine Nitrite NEG Urine Bilirubin NEG Urine Urobilinogen LESS THAN 2.0 MG/DL Urine Leukocyte Esterase LARGE Urine RBC 3 /hpf Urine WBC 15 /hpf Urine Squamous Epithelial Cells 13 /hpf Urine Bacteria FEW /hpf Urine Mucus FEW /lpf Microscopic Urinalysis Comment CULTURE INDICATED Lactic Acid Level 1.5 mmol/L [facility] Medical Decision Making Medical Screen Exam Complete: Yes Emergency Medical Condition: Yes Medical Record Reviewed: Yes Interpretation(s) Last Impressions Chest X-Ray 11/16/16 [id number] Signed Impressions: Service Date/Time: Wednesday, November 16, 2016 23:06 - CONCLUSION: 1. No active disease. Minimal linear scarring left lung base. Basilio Ocampo MD Differential Diagnosis Acute pancreatitis, versus biliary colic, versus gastritis, versus peptic ulcer disease, versus gastroparesis, versus cyclic vomiting syndrome, versus gastroenteritis Narrative Course During the course of the patients emergency department visit, the patients history, examination, and differential diagnosis were reviewed with the patient. The patient had the patient was placed on a claims examiner with oximetry and blood pressure monitoring. IV access obtained and blood work sent for analysis. The patient had an ECG done on arrival. The patient's ECG reveals a sinus bradycardia heart rate of 51, no acute ST segment elevation or depression. The patient was initially provided normal saline 1 L IV fluid bolus, morphine 4 mg IV for pain, Zofran 4 mg IV for nausea, Protonix 40 mg IV for acid reduction. The patients laboratory studies were reviewed and remarkable for a white count of 5.7, hemoglobin 13.6, platelets 290 with 8.8 monocytes, CMP is remarkable for chloride of 111, glucose 107, ALT 8, alkaline phosphatase 38, troponin I less than 0.02, C-reactive protein less than 0.29, lipase 109, lactic acid 1.5, urinalysis showed small occult blood, large leukocyte esterase, 3 RBCs, 15 WBCs , however this is suspicious for contamination as the patient does have squamous epithelial cells that are 13. Culture is indicated and will be done. The patient was given a one-time dose of Rocephin 1 g IV per Radiology studies were reviewed and remarkable for a chest x-ray that shows no active disease, minimal linear scarring of the left lung base. As the patient on examination has a benign abdomen and has had imaging of her abdomen done last in 2016, the risks outweigh the benefits of repeat imaging with a CT scan of the abdomen and pelvis at this time. The patient had no further episodes of vomiting observed in the emergency department. The patient is resting comfortably and feels better, is alert and in no distress. The patients results and examination findings were discussed with the patient. The repeat examination is unremarkable and benign. The history, exam, diagnostic testing, and current condition do not suggest any significant pathology to warrant further testing, continued ED treatment, admission, or surgical evaluation at this point. The vital signs have been stable. The patient does not have uncontrollable pain, intractable vomiting, or other significant symptoms. The patient's condition is stable and appropriate for discharge. The patient will pursue further outpatient evaluation with a primary care physician or other designated or consulting physician as indicated in the discharge instructions. The patient expressed understanding and was agreeable with this plan. Diagnosis Primary Impression: Abdominal pain Qualified Codes: R10.13 - Epigastric pain Additional Impressions: Vomiting Qualified Codes: R11.2 - Nausea with vomiting, unspecified Gastritis Qualified Codes: K29.50 - Unspecified chronic gastritis without bleeding Referrals: [facility] Primary Care Physician Patient Instructions: Acute Nausea and Vomiting (ED), Gastritis (ED), General Instructions Med/Other Pt SpecificInfo: No Change to Meds Disposition: 01 DISCHARGE HOME Condition: Stable Elizabeth Faith MD Nov 16, 2016 23:33
--- NOTE | 2016-11-16 23:33 | RADRPT ---
EXAM DATE/TIME: 11/16/2016 23:06 [facility] COMPARISON: CHEST SINGLE AP, September 24, 2016, 5:37. INDICATIONS : Shortness of breath. MEDICAL HISTORY : None. SURGICAL HISTORY : None. ENCOUNTER: Initial ACUITY: 1 day PAIN SCORE: 0/10 LOCATION: Bilateral chest FINDINGS: A single view of the chest demonstrates the lungs to be symmetrically aerated without evidence of mas s, infiltrate or effusion. The cardiomediastinal contours are unremarkable. Osseous structures are intact. CONCLUSION: 1. No active disease. Minimal linear scarring left lung base. Basilio Ocampo MD on November 16, 2016 at 23:31 Board Certified Radiologist. This report was verified electronically.
[2016-11-16 23:50] LABS: AUTOMATED NEUTROPHIL # 3.3 TH/MM3 (1.8-7.7); BASOPHIL # 0.1 TH/MM3 (0-0.2); BASOPHIL % 1.6 % (0.0-2.0); EOSINOPHIL % 0.6 % (0.0-4.0); HEMATOCRIT 39.8 % (35.0-46.0); HEMO FLAGS DIFF FINAL; LYMPH % 31.5 % (9.0-44.0); LYMPHOCYTE # 1.8 TH/MM3 (1.0-4.8); MEAN CELL VOLUME 93.4 FL (80.0-100.0); MEAN CORPUSCULAR HEMOGLOBIN 31.9 PG (27.0-34.0); MEAN CORPUSCULAR HGB CONC 34.1 % (32.0-36.0); MONO % 8.8 % (0.0-8.0); NEUT % 57.5 % (16.0-70.0); PLATELET COUNT 290 TH/MM3 (150-450); RED BLOOD COUNT 4.26 MIL/MM3 (4.00-5.30); RED CELL DISTRIBUTION WIDTH 14.8 % (11.6-17.2); WHITE BLOOD COUNT 5.7 TH/MM3 (4.0-11.0)
[2016-11-16 23:59] LABS: BACTERIA, URINE FEW /hpf; BLOOD, URINE SMALL (NEG); COMMENT (UR) CULTURE INDICATED; CULTURE IF INDICATED CULTURE INDICATED; GLUCOSE,URINE NEG (NEG); KETONE, URINE NEG (NEG); MUCUS URINE FEW /lpf (OCC); NITRITE,URINE NEG (NEG); PH, URINE 5.5 (5.0-8.5); SQUAMOUS EPITHELIAL CELL URINE 13 /hpf (0-5); URINE COLOR YELLOW (YELLW/STRAW)
[2016-11-17 00:11] LABS: ALKALINE PHOSPHATASE 38 U/L (45-117); TOTAL BILIRUBIN ADULT 0.5 MG/DL (0.2-1.0)
[2016-11-17 00:12] LABS: ALT (GPT) 8 U/L (10-53); ANION GAP 6 MEQ/L (5-15); AST (GOT) 28 U/L (15-37); BLOOD UREA NITROGEN 13 MG/DL (7-18); CHLORIDE 111 MEQ/L (98-107); GLOMERULAR FILTRATION RATE 80 ML/MIN (>89); MAGNESIUM 1.8 MG/DL (1.5-2.5); POTASSIUM 4.5 MEQ/L (3.5-5.1); SODIUM (NA) 141 MEQ/L (136-145)
[2016-11-17 00:21] VITALS: O2SAT 96
[2016-11-17] MEDS ORDERED: PANTOPRAZOLE SODIUM 40 MG VIAL IV PUSH ONE (00:45)
[2016-11-17] MEDS ORDERED: MORPHINE SULFATE 4 MG/ML INJ IV PUSH ONE (00:45)
[2016-11-17] MEDS ORDERED: PROCHLORPERAZINE INJ 10 MG/2 ML VIAL IV PUSH ONE (00:45)
[2016-11-17] MEDS ORDERED: cefTRIAXone INJ 1,000 MG in SODIUM CHLORIDE 0.9% INJ 100 ML IV ONE (02:15)
--- NOTE | 2016-11-17 11:53 | EKG ---
Date Performed: 11/17/2016 Time Performed: 01:03:15 PTAGE: 66 years EKG: SINUS BRADYCARDIA BORDERLINE ECG Compared to prior tracing no significant change PREVIOUS TRACING : 09/24/2016 05.59 DOCTOR: Ernie Faith Interpretating Date/Time 11/17/2016 11:52:40
== END 2016-11-17 05:10 | disposition home or self-care (01) ==
LOC: NEPC 22:30
DX: K29.50 Unspecified chronic gastritis without bleeding (principal); R11.2 Nausea with vomiting, unspecified
CPT/HCPCS: 71010; 80053; 81001; 83605; 83690; 83735; 84484; 85025; 86140; 87086; 93005; 96361; 96374; 96375; 99284; C9113; J0696; J0780; J2270; J7030

== ENCOUNTER 2017-01-13 11:04 | Emergency (ER) | payer MEDICARE, OTHER ==
[~2017-01-13] VITALS: Ht 157.5 cm; Wt 62.3 kg
[2017-01-13 11:05] VITALS: BP 173/99; PULSE 74; RESP 20; TEMP 98.8; O2SAT 100
[2017-01-13] MEDS ORDERED: SODIUM CHLOR 0.9% 1000 ML INJ 1,000 ML IV SCH (11:28)
[2017-01-13] MEDS ORDERED: LIDOCAINE VISCOUS 2% SOLN 15 ML UDC PO ONE (11:30)
[2017-01-13] MEDS ORDERED: MORPHINE SULFATE 4 MG/ML INJ IV PUSH ONE ×2 (11:30→12:15)
[2017-01-13] MEDS ORDERED: FAMOTIDINE 20 MG/2 ML VIAL IV PUSH ONE (11:30)
[2017-01-13] MEDS ORDERED: ALUMINUM/MAGNESIUM/SIMETH 30 ML CUP PO ONE (11:30)
[2017-01-13] MEDS ORDERED: ONDANSETRON HCL 4 MG/2 ML VIAL IVP ONE (11:30)
[2017-01-13] MEDS ORDERED: SODIUM CHLORIDE 0.9% FLUSH 10 ML FLUSH IV FLUSH PRN (11:30)
[2017-01-13] MEDS ORDERED: CEFU1TAB20 PO (11:31)
[2017-01-13] MEDS ORDERED: GABA300C5 PO (11:31)
[2017-01-13] MEDS ORDERED: MECL-62 PO (11:31)
[2017-01-13 12:00] VITALS: BP 145/80; PULSE 65; RESP 19; O2SAT 97
--- NOTE | 2017-01-13 12:05 | PD ---
HPI Chief Complaint: Abdominal Pain Time Seen by Provider: 11:19 Travel History International Travel<30 days: No Contact w/Intl Traveler<30days: No History of Present Illness HPI Patient is a 66-year-old female, with history of gastritis, who comes in complaining of abdominal pain. She says the pain started at 5 AM. She says it is similar to her past gastritis pain. She says she had some rice in the a.m.' s for dinner last night. She reports multiple episodes of vomiting, last one was just prior to being roomed in the emergency department. She denies fever or chills. She says she is having diarrhea, which is also common when she has a gastritis flare. She reports taking all of her medications as directed. PFSH Past Medical History Arthritis: Yes Asthma: No Autoimmune Disease: No Blood Disorders: No Anxiety: Yes Depression: No Heart Rhythm Problems: No Cancer: No Cardiovascular Problems: Yes (HTN) High Cholesterol: No Chest Pain: No Congestive Heart Failure: No COPD: No Diabetes: No Diminished Hearing: No Endocrine: No Gastrointestinal Disorders: Yes (chronic gastritis ) GERD: Yes Genitourinary: No Hiatal Hernia: No Hypertension: Yes Immune Disorder: No Musculoskeletal: No Neurologic: No Psychiatric: Yes Reproductive: No Respiratory: No Immunizations Current: Yes Thyroid Disease: No Ulcer: Yes Influenza Vaccination: No PNEUMOCCOCAL Vaccine (Year): 2 ?: Not Menopausal: Yes : 3 Para: 3 Miscarriage: 0 : 0 Tubal Ligation: Yes (1978) Past Surgical History AICD: No Gynecologic Surgery: Yes Hysterectomy: Yes Pacemaker: No Other Surgery: Yes Social History Alcohol Use: No (HX -NOT CURRENT) Tobacco Use: Yes (1 pack a week) Substance Use: No Allergies-Medications (Allergen,Severity, Reaction): Coded Allergies: codeine (Verified Allergy, Severe, 01/13/17) VOMITING Reported Meds & Prescriptions Reported Meds & Active Scripts Active Omeprazole 40 Mg Cap 40 Mg PO DAILY Zofran Odt (Ondansetron Odt) 4 Mg Tab 4 Mg SL Q6HR PRN Reported Cefuroxime (Cefuroxime Axetil) 500 Mg Tab 500 Mg PO BID Gabapentin 300 Mg Cap 300 Mg PO DAILY Meclizine (Meclizine HCl) 25 Mg Tab 25 Mg PO TID PRN Xarelto (Rivaroxaban) 20 Mg Tab 20 Mg PO DAILY Lorazepam 1 Mg Tab 1 Mg PO TID PRN Clonidine (Clonidine HCl) 0.1 Mg Tab 0.1 Mg PO BID Review of Systems Except as stated in HPI: all other systems reviewed are Neg General / Constitutional: No: Fever, Chills HENT: No: Headaches, Lightheadedness Cardiovascular: No: Chest Pain or Discomfort Respiratory: No: Shortness of Breath Gastrointestinal: Positive: Nausea, Vomiting, Diarrhea, Abdominal Pain Genitourinary: No: Dysuria Musculoskeletal: No: Edema Skin: No Rash, No Change in Pigmentation Neurologic: No: Weakness, Dizziness Physical Exam Narrative GENERAL: Awake and alert, in mild distress due to pain. SKIN: Focused skin assessment warm/dry. HEAD: Atraumatic. Normocephalic. EYES: Pupils equal and round. No scleral icterus. ENT: Mucous membranes pink and moist. NECK: Trachea midline. No JVD. CARDIOVASCULAR: Regular rate and rhythm. No murmur appreciated. RESPIRATORY: No accessory muscle use. Clear to auscultation. Breath sounds equal bilaterally. GASTROINTESTINAL: Abdomen soft, nondistended. Tender to palpation in the midepigastric area. No rebound or guarding. MUSCULOSKELETAL: No obvious deformities. No clubbing. No cyanosis. No edema. NEUROLOGICAL: Awake and alert. No obvious cranial nerve deficits. Motor grossly within normal limits. Normal speech. PSYCHIATRIC: Appropriate mood and affect; insight and judgment normal. Data Data Last Documented VS Vital Signs Date Time Temp Pulse Resp B/P (MAP) Pulse Ox O2 Delivery O2 Flow Rate FiO2 01/13/17 11:23 19 01/13/17 11:05 98.8 74 173/99 (123) 100 Room Air Orders Orders Basic Metabolic Panel (Bmp) (01/13/17 11:28) Complete Blood Count With Diff (01/13/17 11:28) Lipase (01/13/17 11:28) Prothrombin Time / Inr (Pt) (01/13/17 11:28) Act Partial Throm Time (Ptt) (01/13/17 11:28) Urinalysis - C+S If Indicated (01/13/17 11:28) Iv Access Insert/Monitor (01/13/17 11:28) Ecg Monitoring (01/13/17 11:28) Oximetry (01/13/17 11:28) Morphine Inj (Morphine Inj) (01/13/17 11:30) Ondansetron Inj (Zofran Inj) (01/13/17 11:30) Sodium Chlor 0.9% 1000 Ml Inj (Ns 1000 M (01/13/17 11:28) Sodium Chloride 0.9% Flush (Ns Flush) (01/13/17 11:30) Electrocardiogram (01/13/17 11:28) Famotidine Inj (Pepcid Inj) (01/13/17 11:30) Al-Mag Hy-Si 40-40-4 Mg/Ml Liq (Mag-Al P (01/13/17 11:30) Lidocaine 2% Viscous (Xylocaine 2% Visco (01/13/17 11:30) Hepatic Functional Panel (01/13/17 11:28) Morphine Inj (Morphine Inj) (01/13/17 12:15) Urine Culture (01/13/17 13:00) Ct Abd/Pel W Iv Contrast(Rout) (01/13/17 ) Iohexol 350 Inj (Omnipaque 350 Inj) (01/13/17 14:09) Hydromorphone Pf Inj (Dilaudid Pf Inj) (01/13/17 14:30) Acetamin-Hydrocod 325-5 Mg ([place] 5-325 (01/13/17 14:45) Labs Laboratory Tests Test 01/13/17 11:45 01/13/17 13:00 White Blood Count 4.6 TH/MM3 Red Blood Count 4.11 MIL/MM3 Hemoglobin 12.7 GM/DL Hematocrit 38.9 % Mean Corpuscular Volume 94.7 FL Mean Corpuscular Hemoglobin 30.9 PG Mean Corpuscular Hemoglobin Concent 32.7 % Red Cell Distribution Width 14.2 % Platelet Count 261 TH/MM3 Mean Platelet Volume 8.8 FL Neutrophils (%) (Auto) 69.7 % Lymphocytes (%) (Auto) 21.2 % Monocytes (%) (Auto) 7.6 % Eosinophils (%) (Auto) 0.3 % Basophils (%) (Auto) 1.2 % Neutrophils # (Auto) 3.2 TH/MM3 Lymphocytes # (Auto) 1.0 TH/MM3 Monocytes # (Auto) 0.3 TH/MM3 Eosinophils # (Auto) 0.0 TH/MM3 Basophils # (Auto) 0.1 TH/MM3 CBC Comment DIFF FINAL Differential Comment Prothrombin Time 10.5 SEC Prothromb Time International Ratio 1.0 RATIO Activated Partial Thromboplast Time 25.3 SEC Blood Urea Nitrogen 18 MG/DL Creatinine 0.71 MG/DL Random Glucose 95 MG/DL Total Protein 7.0 GM/DL Albumin 3.4 GM/DL Calcium Level 8.8 MG/DL Alkaline Phosphatase 39 U/L Aspartate Amino Transf (AST/SGOT) 17 U/L Alanine Aminotransferase (ALT/SGPT) 18 U/L Total Bilirubin 0.3 MG/DL Direct Bilirubin 0.1 MG/DL Sodium Level 140 MEQ/L Potassium Level 4.6 MEQ/L Chloride Level 110 MEQ/L Carbon Dioxide Level 23.7 MEQ/L Anion Gap 6 MEQ/L Estimat Glomerular Filtration Rate 99 ML/MIN Indirect Bilirubin 0.2 MG/DL Lipase 174 U/L Urine Color YELLOW Urine Turbidity CLEAR Urine pH 5.5 Urine Specific [place] 1.021 Urine Protein NEG mg/dL Urine Glucose (UA) NEG mg/dL Urine Ketones NEG mg/dL Urine Occult Blood NEG Urine Nitrite NEG Urine Bilirubin NEG Urine Urobilinogen LESS THAN 2.0 MG/DL Urine Leukocyte Esterase SMALL Urine RBC 2 /hpf Urine WBC 12 /hpf Urine Squamous Epithelial Cells 1 /hpf Urine Bacteria RARE /hpf Urine Mucus FEW /lpf Microscopic Urinalysis Comment CULTURE INDICATED MDM Medical Decision Making Medical Screen Exam Complete: Yes Emergency Medical Condition: Yes Medical Record Reviewed: Yes Interpretation(s) ECG shows sinus bradycardia at 57, no ST elevation or depression, normal intervals. Differential Diagnosis Gastritis versus pancreatitis versus GERD Narrative Course Patient is a 66-year-old female comes in complaining of abdominal pain, typical of her gastritis. Exam shows epigastric tenderness. IV established, labs sent. Labs show no acute abnormalities. Urinalysis is positive for bacteria. Patient given GI cocktail as well as morphine. She says the morphine helped for a little and then it comes back. After 2 doses of morphine, decision made to obtain CT of her abdomen and pelvis. The CAT scan shows no acute abnormalities. Patient states she would just like a pain pill in to go home. She was given a Lortab. Given a prescription for Macrobid. Advised follow-up with her doctor. Advised to return to the ED as needed for any worsening symptoms. Diagnosis Primary Impression: UTI (urinary tract infection) Qualified Codes: N30.00 - Acute cystitis without hematuria Additional Impression: Gastritis Qualified Codes: K29.50 - Unspecified chronic gastritis without bleeding Patient Instructions: Gastritis (ED), General Instructions, Urinary Tract Infection in Women (ED) Additional Instructions: Take all of your antibiotic. Take your medications as prescribed. Follow-up with her doctor. Return to the ED as needed for any worsening symptoms. Scripts Nitrofurantoin Monohydrate Macrocrystals (Macrobid) 100 Mg Capsule 100 MG PO BID for Infection for 5 Days, #10 CAP 0 Refills Prov: Mari Soto MD 01/13/17 Disposition: 01 DISCHARGE HOME Condition: Stable Mari Soto MD Jan 13, 2017 12:05
[2017-01-13 12:25] LABS: AUTOMATED NEUTROPHIL # 3.2 TH/MM3 (1.8-7.7); BASOPHIL # 0.1 TH/MM3 (0-0.2); BASOPHIL % 1.2 % (0.0-2.0); EOSINOPHIL % 0.3 % (0.0-4.0); HEMATOCRIT 38.9 % (35.0-46.0); HEMO FLAGS DIFF FINAL; LYMPH % 21.2 % (9.0-44.0); MEAN CELL VOLUME 94.7 FL (80.0-100.0); MEAN CORPUSCULAR HEMOGLOBIN 30.9 PG (27.0-34.0); MEAN CORPUSCULAR HGB CONC 32.7 % (32.0-36.0); MONO % 7.6 % (0.0-8.0); NEUT % 69.7 % (16.0-70.0); PLATELET COUNT 261 TH/MM3 (150-450); RED BLOOD COUNT 4.11 MIL/MM3 (4.00-5.30); RED CELL DISTRIBUTION WIDTH 14.2 % (11.6-17.2); WHITE BLOOD COUNT 4.6 TH/MM3 (4.0-11.0)
[2017-01-13 12:34] LABS: APTT (PATIENT) 25.3 SEC (24.3-30.1); PROTHROMBIN TIME - PATIENT 10.5 SEC (9.8-11.6)
[2017-01-13 12:50] LABS: TOTAL BILIRUBIN ADULT 0.3 MG/DL (0.2-1.0)
[2017-01-13 12:52] LABS: BICARBONATE 23.7 MEQ/L (21.0-32.0); INDIRECT BILIRUBIN 0.2 MG/DL (0.0-0.8); POTASSIUM 4.6 MEQ/L (3.5-5.1)
[2017-01-13 13:25] LABS: BACTERIA, URINE RARE /hpf; BLOOD, URINE NEG (NEG); COMMENT (UR) CULTURE INDICATED; CULTURE IF INDICATED CULTURE INDICATED; GLUCOSE,URINE NEG (NEG); KETONE, URINE NEG (NEG); MUCUS URINE FEW /lpf (OCC); NITRITE,URINE NEG (NEG); PH, URINE 5.5 (5.0-8.5); SQUAMOUS EPITHELIAL CELL URINE 1 /hpf (0-5); URINE COLOR YELLOW (YELLW/STRAW)
[2017-01-13] MEDS ORDERED: IOHEXOL 350 MG/ML 10 ML VIAL (for RAD DIAG) IVCONTRAST ONE (14:09)
--- NOTE | 2017-01-13 14:20 | RADRPT ---
EXAM DATE/TIME: 01/13/2017 14:05 [facility] COMPARISON: No previous studies available for comparison. INDICATIONS : Epigastric pain since 5am. Nausea and vomiting. IV CONTRAST: 96 cc Omnipaque 350 (iohexol) IV ORAL CONTRAST: Prescribed oral contrast ingested. RADIATION DOSE: 7.21 CTDIvol (mGy) MEDICAL HISTORY : Cardiovascular disease. Hypertension. SURGICAL HISTORY : Tubal ligation. Hysterectomy. ENCOUNTER: Initial ACUITY: 1 day PAIN SCALE: 5/10 LOCATION: abdomen TECHNIQUE: Volumetric scanning of the abdomen and pelvis was performed. Using automated exposure control and ad justment of the mA and/or kV according to patient size, radiation dose was kept as low as reasonably achievable to obtain optimal diagnostic quality images. DICOM format image data is available electro nically for review and comparison. FINDINGS: LOWER LUNGS: The visualized lower lungs are clear. LIVER: Homogeneous density without lesion. There is no dilation of the biliary tree. No calcified gallston es. SPLEEN: Normal size without lesion. PANCREAS: Within normal limits. KIDNEYS: Normal in size and shape. There is no mass, stone or hydronephrosis. ADRENAL GLANDS: Within normal limits. VASCULAR: There is no aortic aneurysm. BOWEL/MESENTERY: Hiatal hernia is present . The stomach, small bowel, and colon demonstrate no acute abnormality. The re is no free intraperitoneal air or fluid. ABDOMINAL WALL: Within normal limits. RETROPERITONEUM: There is no lymphadenopathy. BLADDER: No wall thickening or mass. REPRODUCTIVE: Retroverted uterus INGUINAL: There is no lymphadenopathy or hernia. MUSCULOSKELETAL: Within normal limits for patient age. CONCLUSION: The uterus is retroverted and stable. Stable calcification right adnexa. No concerning masses are areli ntified. Solid organs are unremarkable. There is small hiatal hernia. Yosi Abel MD on January 13, 2017 at 14:17 Board Certified Radiologist. This report was verified electronically.
[2017-01-13] MEDS ORDERED: HYDROmorphone HCL PF 0.5 MG/0.5 ML SYRINGE IV PUSH ONE (14:30)
[2017-01-13] MEDS ORDERED: ACETAMINOPHEN/HYDROcodone 325 MG/5 MG TAB PO ONE (14:45)
[2017-01-13] MEDS ORDERED: MACR100C2 PO (14:46)
[2017-01-13 15:18] VITALS: BP 145/80
--- NOTE | 2017-01-14 10:49 | EKG ---
Date Performed: 01/13/2017 Time Performed: 11:55:33 PTAGE: 66 years EKG: SINUS BRADYCARDIA BORDERLINE ECG PREVIOUS TRACING : 11/17/2016 01.03 DOCTOR: Seferino Mitchell Interpretating Date/Time 01/14/2017 10:47:14
== END 2017-01-13 15:25 | disposition home or self-care (01) ==
LOC: NEPD 11:04
DX: N30.00 Acute cystitis without hematuria (principal); K29.50 Unspecified chronic gastritis without bleeding; I10 Essential (primary) hypertension; F17.200 Nicotine dependence, unspecified, uncomplicated
CPT/HCPCS: 74177; 80048; 80076; 81001; 83690; 85025; 85610; 85730; 87086; 93005; 96361; 96374; 96375; 96376; 99285; J2270; J2405; J7030; Q9967

== ENCOUNTER 2017-02-14 22:18 | Emergency (ER) | payer MEDICARE, OTHER ==
[~2017-02-14] VITALS: Ht 157.5 cm; Wt 65.9 kg
[~2017-02-14 22:18] MED LIST changes: +CEFU1TAB20 PO; +GABA300C5 PO; +MACR100C2 PO; +MECL-62 PO
[2017-02-14 22:23] VITALS: BP 183/80; PULSE 54; RESP 20; TEMP 98.8; O2SAT 98
[2017-02-14] MEDS ORDERED: LISI-515 PO (22:34)
[2017-02-14] MEDS ORDERED: HYDR50TA3 PO (22:34)
--- NOTE | 2017-02-14 22:43 | PD ---
HPI Chief Complaint: Abdominal Pain Time Seen by Provider: 22:37 Travel History International Travel<30 days: No Contact w/Intl Traveler<30days: No Traveled to known affect area: No History of Present Illness HPI 66-year-old female presents to the emergency Department with complaint of exacerbation of gastritis it started at 8 AM this morning. She was seen at [facility] and was discharged 6 hours ago. Pain returned about an hour ago with continued nausea and vomiting. Pain is to the epigastric region. Rates pain 10/10. Describes it as a "hurt." No known aggravating factors. He was released with pain medications that were administered earlier. Denies dysuria, diarrhea, constipation. Denies hematemesis, hemoptysis, hematuria. Reports taking Xarelto for history of DVT. History of gastritis and hypertension. Denies history of abdominal surgeries. PCP is Dr. Ocampo. 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 Allergies to codeine. Has no other medical complaints. No other modifying factors or associated signs and symptoms. PFSH Past Medical History Arthritis: Yes Asthma: No Autoimmune Disease: No Blood Disorders: No Anxiety: Yes Depression: No Heart Rhythm Problems: No Cancer: No Cardiovascular Problems: Yes (HTN) High Cholesterol: No Chest Pain: No Congestive Heart Failure: No COPD: No Diabetes: No Diminished Hearing: No Endocrine: No Gastrointestinal Disorders: Yes (chronic gastritis ) GERD: Yes Genitourinary: No Hiatal Hernia: No Hypertension: Yes Immune Disorder: No Musculoskeletal: No Neurologic: No Psychiatric: Yes Reproductive: No Respiratory: No Immunizations Current: Yes Thyroid Disease: No Ulcer: Yes PNEUMOCCOCAL Vaccine (Year): 2 ?: Not Menopausal: Yes : 3 Para: 3 Miscarriage: 0 : 0 Tubal Ligation: Yes (1978) Past Surgical History AICD: No Gynecologic Surgery: Yes Hysterectomy: Yes Pacemaker: No Other Surgery: Yes Social History Alcohol Use: No (HX -NOT CURRENT) Tobacco Use: Yes (1 pack a week) Substance Use: No Allergies-Medications (Allergen,Severity, Reaction): Coded Allergies: codeine (Verified Allergy, Severe, 01/13/17) VOMITING Reported Meds & Prescriptions Reported Meds & Active Scripts Active Macrobid (Nitrofurantoin Monohydrate Macrocrystals) 100 Mg Capsule 100 Mg PO BID 5 Days Omeprazole 40 Mg Cap 40 Mg PO DAILY Zofran Odt (Ondansetron Odt) 4 Mg Tab 4 Mg SL Q6HR PRN Reported Hydrochlorothiazide 50 Mg Tab 50 Mg PO DAILY Lisinopril 20 Mg Tab 20 Mg PO DAILY Gabapentin 300 Mg Cap 300 Mg PO DAILY Meclizine (Meclizine HCl) 25 Mg Tab 25 Mg PO TID PRN Xarelto (Rivaroxaban) 20 Mg Tab 20 Mg PO DAILY Lorazepam 1 Mg Tab 1 Mg PO TID PRN Clonidine (Clonidine HCl) 0.1 Mg Tab 0.1 Mg PO DAILY Review of Systems Except as stated in HPI: all other systems reviewed are Neg Physical Exam Narrative GENERAL: Well-nourished, well-developed elderly, black female patient, in no acute distress; afebrile SKIN: Warm and dry. HEAD: Atraumatic. Normocephalic. EYES: Pupils equal and round. No scleral icterus. No injection or drainage. ENT: Mucosa pink and moist. Airway patent. NECK: Trachea midline. CARDIOVASCULAR: Regular rate and rhythm. No murmur appreciated. RESPIRATORY: No accessory muscle use. Clear to auscultation. Breath sounds equal bilaterally. GASTROINTESTINAL: Abdomen soft, tenderness on palpation to epigastric region, nondistended. Hepatic and splenic margins not palpable. Bowel sounds are active 4 quadrants. Nonrigid. No guarding. MUSCULOSKELETAL: No obvious deformities. No clubbing. No cyanosis. No edema. NEUROLOGICAL: Awake and alert. Oriented 3. No obvious cranial nerve deficits. Motor grossly within normal limits. Normal speech. PSYCHIATRIC: Appropriate mood and affect; insight and judgment normal. Data Data Last Documented VS Vital Signs Date Time Temp Pulse Resp B/P (MAP) Pulse Ox O2 Delivery O2 Flow Rate FiO2 02/14/17 22:23 98.8 54 20 183/80 (114) 98 Orders Orders Iv Access Insert/Monitor (02/14/17 22:47) Ecg Monitoring (02/14/17 22:47) Oximetry (02/14/17 22:47) Ondansetron Inj (Zofran Inj) (02/14/17 23:00) Sodium Chlor 0.9% 1000 Ml Inj (Ns 1000 M (02/14/17 22:47) Sodium Chloride 0.9% Flush (Ns Flush) (02/14/17 23:00) MDM Medical Decision Making Medical Screen Exam Complete: Yes Emergency Medical Condition: Yes Medical Record Reviewed: Yes Differential Diagnosis Gastritis, gastritis, cholecystitis, medical clearance Narrative Course 58-year-old female arrives via EMS with history of gastritis with complaint of continued epigastric pain and vomiting after being discharged 6 hours ago from [facility]. IV, normal saline bolus, Zofran ordered. 2300: Dr. Yao assumed patient care at this time. See her note for final patient disposition. Aliya Hampton Feb 14, 2017 22:43
[2017-02-14] MEDS ORDERED: SODIUM CHLOR 0.9% 1000 ML INJ 1,000 ML IV SCH (22:47)
[2017-02-14] MEDS ORDERED: ONDANSETRON HCL 4 MG/2 ML VIAL IVP ONE (23:00)
[2017-02-14] MEDS ORDERED: SODIUM CHLORIDE 0.9% FLUSH 10 ML FLUSH IV FLUSH PRN (23:00)
[2017-02-15] MEDS ORDERED: MORPHINE SULFATE 2 MG/ML INJ IV PUSH ONE (00:30)
[2017-02-15 00:58] LABS: AUTOMATED NEUTROPHIL # 4.9 TH/MM3 (1.8-7.7); BASOPHIL % 0.6 % (0.0-2.0); EOSINOPHIL % 0.1 % (0.0-4.0); HEMATOCRIT 37.2 % (35.0-46.0); HEMOGLOBIN 12.3 GM/DL (11.6-15.3); LYMPH % 12.4 % (9.0-44.0); LYMPHOCYTE # 0.7 TH/MM3 (1.0-4.8); MEAN CELL VOLUME 94.2 FL (80.0-100.0); MEAN CORPUSCULAR HEMOGLOBIN 31.2 PG (27.0-34.0); MEAN CORPUSCULAR HGB CONC 33.1 % (32.0-36.0); MEAN PLATELET VOLUME 9.2 FL (7.0-11.0); MONO % 4.9 % (0.0-8.0); MONOCYTE # 0.3 TH/MM3 (0-0.9); PLATELET COUNT 280 TH/MM3 (150-450); RED BLOOD COUNT 3.95 MIL/MM3 (4.00-5.30); RED CELL DISTRIBUTION WIDTH 14.3 % (11.6-17.2); WHITE BLOOD COUNT 5.9 TH/MM3 (4.0-11.0)
[2017-02-15] MEDS ORDERED: LIDOCAINE VISCOUS 2% SOLN 15 ML UDC SWISH-SWAL ONE (01:30)
[2017-02-15] MEDS ORDERED: ATROPINE/SCOPOLAM/HYOSCYAM/PB ELIXIR 10 ML CUP PO ONE (01:30)
[2017-02-15] MEDS ORDERED: ALUMINUM/MAGNESIUM/SIMETH 30 ML CUP PO ONE (01:30)
[2017-02-15 02:22] VITALS: BP 131/70; PULSE 55; RESP 20; O2SAT 98
[2017-02-15 02:39] LABS: ALBUMIN 3.1 GM/DL (3.4-5.0); ALT (GPT) 11 U/L (10-53); AST (GOT) 10 U/L (15-37); BICARBONATE 21.9 MEQ/L (21.0-32.0); BLOOD UREA NITROGEN 12 MG/DL (7-18); CALCIUM 7.8 MG/DL (8.5-10.1); CHLORIDE 112 MEQ/L (98-107); CREATININE 0.66 MG/DL (0.50-1.00); GLOMERULAR FILTRATION RATE 108 ML/MIN (>89); GLUCOSE,RANDOM 124 MG/DL (74-106); LIPASE 98 U/L (73-393); SODIUM (NA) 141 MEQ/L (136-145)
[2017-02-15 02:41] LABS: ALKALINE PHOSPHATASE 40 U/L (45-117); TOTAL BILIRUBIN ADULT 0.3 MG/DL (0.2-1.0); TOTAL PROTEIN 6.2 GM/DL (6.4-8.2)
[2017-02-15] MEDS ORDERED: ZOFR4TAB3 SL (02:52)
[2017-02-15] MEDS ORDERED: ZANT150T2 PO (02:52)
--- NOTE | 2017-02-15 02:52 | PD ---
Data Data Last Documented VS Vital Signs Date Time Temp Pulse Resp B/P (MAP) Pulse Ox O2 Delivery O2 Flow Rate FiO2 02/15/17 02:22 55 20 131/70 (90) 98 Room Air 02/14/17 22:23 98.8 Orders Orders Iv Access Insert/Monitor (02/14/17 22:47) Ecg Monitoring (02/14/17 22:47) Oximetry (02/14/17 22:47) Ondansetron Inj (Zofran Inj) (02/14/17 23:00) Sodium Chlor 0.9% 1000 Ml Inj (Ns 1000 M (02/14/17 22:47) Sodium Chloride 0.9% Flush (Ns Flush) (02/14/17 23:00) Complete Blood Count With Diff (02/15/17 00:16) Comprehensive Metabolic Panel (02/15/17 00:16) Lipase (02/15/17 00:16) Morphine Inj (Morphine Inj) (02/15/17 00:30) Al-Mag Hy-Si 40-40-4 Mg/Ml Liq (Mag-Al P (02/15/17 01:30) Lidocaine 2% Viscous (Xylocaine 2% Visco (02/15/17 01:30) Xnfgz-Arfdpm-Vkmzkm-Pb Liq ( Liq (02/15/17 01:30) Labs Laboratory Tests Test 02/15/17 00:39 02/15/17 02:13 White Blood Count 5.9 TH/MM3 Red Blood Count 3.95 MIL/MM3 Hemoglobin 12.3 GM/DL Hematocrit 37.2 % Mean Corpuscular Volume 94.2 FL Mean Corpuscular Hemoglobin 31.2 PG Mean Corpuscular Hemoglobin Concent 33.1 % Red Cell Distribution Width 14.3 % Platelet Count 280 TH/MM3 Mean Platelet Volume 9.2 FL Neutrophils (%) (Auto) 82.0 % Lymphocytes (%) (Auto) 12.4 % Monocytes (%) (Auto) 4.9 % Eosinophils (%) (Auto) 0.1 % Basophils (%) (Auto) 0.6 % Neutrophils # (Auto) 4.9 TH/MM3 Lymphocytes # (Auto) 0.7 TH/MM3 Monocytes # (Auto) 0.3 TH/MM3 Eosinophils # (Auto) 0.0 TH/MM3 Basophils # (Auto) 0.0 TH/MM3 CBC Comment AUTO DIFF Differential Comment AUTO DIFF CONFIRMED Platelet Estimate NORMAL Platelet Morphology Comment NORMAL Red Cell Morphology Comment NORMAL Blood Urea Nitrogen 12 MG/DL Creatinine 0.66 MG/DL Random Glucose 124 MG/DL Total Protein 6.2 GM/DL Albumin 3.1 GM/DL Calcium Level 7.8 MG/DL Alkaline Phosphatase 40 U/L Aspartate Amino Transf (AST/SGOT) 10 U/L Alanine Aminotransferase (ALT/SGPT) 11 U/L Total Bilirubin 0.3 MG/DL Sodium Level 141 MEQ/L Potassium Level 3.7 MEQ/L Chloride Level 112 MEQ/L Carbon Dioxide Level 21.9 MEQ/L Anion Gap 7 MEQ/L Estimat Glomerular Filtration Rate 108 ML/MIN Lipase 98 U/L MDM Supervised Visit with KYM: Yes Narrative Course The history, exam, and medical decision-making in the associated midlevel provider note were completed with my assistance. I reviewed and agree with the findings presented. I attest that I had a [id number] encounter with the patient on the same day, and personally performed and documented my assessment and findings in the medical record. *My assessment and Findings: This is a 66 year old female who presents to the emergency department with abdominal discomfort. She has a history of chronic recurring gastritis. Labs are obtained which are reassuring. She feels much better after morphine and a GI cocktail. I don't think she requires imaging as this is similar to symptoms she had in the past. Patient will be discharged home. Diagnosis Primary Impression: Gastritis Qualified Codes: K29.50 - Unspecified chronic gastritis without bleeding Patient Instructions: General Instructions Additional Instruction: If you develop severe or worsening abdominal pain, fever>100.4, persistent vomiting or inability to eat or drink return to the emergency department immediately. Follow up with your primary care physician in 1-2 days for a check-up. Med/Other Pt SpecificInfo: Prescription(s) given Scripts Ondansetron Odt (Zofran Odt) 4 Mg Tab 4 MG SL Q6HR Y for Nausea/Vomiting, #15 TAB 0 Refills Prov: Rhonda Yao MD 02/15/17 Ranitidine (Zantac) 150 Mg Tab 150 MG PO BID for Reduce Stomach Acid, #60 TAB 0 Refills Prov: Rhonda Yao MD 02/15/17 Disposition: 01 DISCHARGE HOME Condition: Stable Rhonda Yao MD Feb 15, 2017 02:52
== END 2017-02-15 03:50 | disposition home or self-care (01) ==
LOC: NEPC 22:18
DX: K29.50 Unspecified chronic gastritis without bleeding (principal); I10 Essential (primary) hypertension; K21.9 Gastro-esophageal reflux disease without esophagitis; F17.200 Nicotine dependence, unspecified, uncomplicated; Z79.01 Long term (current) use of anticoagulants; Z86.718 Personal history of other venous thrombosis and embolism
CPT/HCPCS: 80053; 83690; 85025; 96361; 96374; 96375; 99284; J2270; J2405; J7030

== ENCOUNTER 2017-03-27 06:38 | Emergency (ER) | payer MEDICARE, OTHER ==
[~2017-03-27] VITALS: Ht 157.5 cm; Wt 65.0 kg
[~2017-03-27 06:38] MED LIST changes: -CEFU1TAB20 PO; +HYDR50TA3 PO; +LISI-515 PO; +ZANT150T2 PO
[2017-03-27 06:42] VITALS: BP 173/91; PULSE 55; RESP 22; TEMP 98.7; O2SAT 100
--- NOTE | 2017-03-27 07:20 | PD ---
HPI Chief Complaint: Complaint Time Seen by Provider: 07:10 Travel History International Travel<30 days: No Contact w/Intl Traveler<30days: No Traveled to known affect area: No History of Present Illness HPI 66yo F with PMH of gastritis and frequent UTIs presents to the ED with c/o dysuria since 3am today. Pt complains of suprapubic and some left lower abdominal pain. Associated with nausea and vomiting. Said she had a fever this morning. Denies any chest pain, sob, diarrhea, hematuria, vaginal bleeding or discharge. PFSH Past Medical History Hx Anticoagulant Therapy: Yes (xarelto) Arthritis: Yes Asthma: No Autoimmune Disease: No Blood Disorders: No Anxiety: Yes Depression: No Heart Rhythm Problems: No Cancer: No Cardiovascular Problems: Yes (HTN) High Cholesterol: No Chest Pain: No Congestive Heart Failure: No COPD: No Diabetes: No Diminished Hearing: No Endocrine: No Gastrointestinal Disorders: Yes (chronic gastritis ) GERD: Yes Genitourinary: No Hiatal Hernia: No Hypertension: Yes Immune Disorder: No Musculoskeletal: No Neurologic: No Psychiatric: Yes Reproductive: No Respiratory: No Immunizations Current: Yes Thyroid Disease: No Ulcer: Yes Tetanus Vaccination: > 5 Years Influenza Vaccination: No PNEUMOCCOCAL Vaccine (Year): 2 Menopausal: Yes : 3 Para: 3 Miscarriage: 0 : 0 Tubal Ligation: Yes (1978) Past Surgical History AICD: No Gynecologic Surgery: Yes Hysterectomy: Yes Pacemaker: No Other Surgery: Yes Social History Alcohol Use: No (HX ) Tobacco Use: Yes (1 pack a week) Substance Use: No Allergies-Medications (Allergen,Severity, Reaction): Coded Allergies: codeine (Verified Allergy, Severe, 03/27/17) VOMITING Reported Meds & Prescriptions Reported Meds & Active Scripts Active Zofran Odt (Ondansetron Odt) 4 Mg Tab 4 Mg SL Q6HR PRN Zantac (Ranitidine HCl) 150 Mg Tab 150 Mg PO BID Macrobid (Nitrofurantoin Monohydrate Macrocrystals) 100 Mg Capsule 100 Mg PO BID 5 Days Omeprazole 40 Mg Cap 40 Mg PO DAILY Zofran Odt (Ondansetron Odt) 4 Mg Tab 4 Mg SL Q6HR PRN Reported Hydrochlorothiazide 50 Mg Tab 50 Mg PO DAILY Lisinopril 20 Mg Tab 20 Mg PO DAILY Gabapentin 300 Mg Cap 300 Mg PO DAILY Meclizine (Meclizine HCl) 25 Mg Tab 25 Mg PO TID PRN Xarelto (Rivaroxaban) 20 Mg Tab 20 Mg PO DAILY Lorazepam 1 Mg Tab 1 Mg PO TID PRN Clonidine (Clonidine HCl) 0.1 Mg Tab 0.1 Mg PO DAILY Review of Systems Except as stated in HPI: all other systems reviewed are Neg Physical Exam Narrative GENERAL: 66yo F in mild distress. SKIN: Focused skin assessment warm/dry. HEAD: Atraumatic. Normocephalic. CARDIOVASCULAR: Regular rate and rhythm. No murmur appreciated. RESPIRATORY: No accessory muscle use. Clear to auscultation. Breath sounds equal bilaterally. GASTROINTESTINAL: Abdomen soft, +TTP LLQ. +TTP suprapubic region. No rebound tenderness or guarding. BACK: No CVA tenderness bilaterally. MUSCULOSKELETAL: No obvious deformities. No clubbing. No cyanosis. No edema. NEUROLOGICAL: Awake and alert. No obvious cranial nerve deficits. Motor grossly within normal limits. Normal speech. PSYCHIATRIC: Appropriate mood and affect; insight and judgment normal. Data Data Last Documented VS Vital Signs Date Time Temp Pulse Resp B/P (MAP) Pulse Ox O2 Delivery O2 Flow Rate FiO2 03/27/17 09:01 20 03/27/17 06:42 98.7 55 173/91 (118) 100 Orders Orders Complete Blood Count With Diff (03/27/17 07:16) Comprehensive Metabolic Panel (03/27/17 07:16) Lipase (03/27/17 07:16) Prothrombin Time / Inr (Pt) (03/27/17 07:16) Act Partial Throm Time (Ptt) (03/27/17 07:16) Urinalysis - C+S If Indicated (03/27/17 07:16) Ct Abd/Pel W Iv Contrast(Rout) (03/27/17 07:16) Ondansetron Inj (Zofran Inj) (03/27/17 07:30) Ketorolac Inj (Toradol Inj) (03/27/17 07:30) Urine Culture (03/27/17 07:50) Ceftriaxone Inj (Rocephin Inj) (03/27/17 08:45) Morphine Inj (Morphine Inj) (03/27/17 08:45) Iohexol 350 Inj (Omnipaque 350 Inj) (03/27/17 09:30) Metronidazole (Flagyl) (03/27/17 10:00) Labs Laboratory Tests Test 03/27/17 07:50 White Blood Count 6.9 TH/MM3 Red Blood Count 4.44 MIL/MM3 Hemoglobin 13.9 GM/DL Hematocrit 40.9 % Mean Corpuscular Volume 92.2 FL Mean Corpuscular Hemoglobin 31.4 PG Mean Corpuscular Hemoglobin Concent 34.0 % Red Cell Distribution Width 14.2 % Platelet Count 303 TH/MM3 Mean Platelet Volume 8.4 FL Neutrophils (%) (Auto) 77.3 % Lymphocytes (%) (Auto) 13.8 % Monocytes (%) (Auto) 7.5 % Eosinophils (%) (Auto) 0.4 % Basophils (%) (Auto) 1.0 % Neutrophils # (Auto) 5.3 TH/MM3 Lymphocytes # (Auto) 0.9 TH/MM3 Monocytes # (Auto) 0.5 TH/MM3 Eosinophils # (Auto) 0.0 TH/MM3 Basophils # (Auto) 0.1 TH/MM3 CBC Comment DIFF FINAL Differential Comment Prothrombin Time 10.2 SEC Prothromb Time International Ratio 1.0 RATIO Activated Partial Thromboplast Time 23.6 SEC Urine Color YELLOW Urine Turbidity HAZY Urine pH 6.5 Urine Specific [place] 1.019 Urine Protein TRACE mg/dL Urine Glucose (UA) NEG mg/dL Urine Ketones NEG mg/dL Urine Occult Blood TRACE Urine Nitrite NEG Urine Bilirubin NEG Urine Urobilinogen LESS THAN 2.0 MG/DL Urine Leukocyte Esterase LARGE Urine RBC 4 /hpf Urine WBC 24 /hpf Urine Squamous Epithelial Cells 13 /hpf Urine Bacteria FEW /hpf Urine Mucus FEW /lpf Microscopic Urinalysis Comment CULTURE INDICATED Blood Urea Nitrogen 11 MG/DL Creatinine 0.84 MG/DL Random Glucose 102 MG/DL Total Protein 7.4 GM/DL Albumin 3.6 GM/DL Calcium Level 8.8 MG/DL Alkaline Phosphatase 53 U/L Aspartate Amino Transf (AST/SGOT) 14 U/L Alanine Aminotransferase (ALT/SGPT) 7 U/L Total Bilirubin 0.5 MG/DL Sodium Level 141 MEQ/L Potassium Level 3.7 MEQ/L Chloride Level 107 MEQ/L Carbon Dioxide Level 27.8 MEQ/L Anion Gap 6 MEQ/L Estimat Glomerular Filtration Rate 82 ML/MIN Lipase 93 U/L [facility] Medical Decision Making Medical Screen Exam Complete: Yes Emergency Medical Condition: Yes Differential Diagnosis Cystitis vs. nephrolithiasis vs. diverticulitis vs. pyelonephritis Narrative Course 66yo F with frequent UTIs here with dysuria. Labs reviewed, no leukocytosis. H /H normal. Lipase normal. UA showed large leukocyte. WBC 24. Pt given ceftriaxone 1gm IV. Pt given zofran and toradol but said the only medication that works for her pain is morphine. CT a/p showed mild diverticulitis of sigmoid colon without perforation or abscess. Right renal low density likely cysts. Small hiatal hernia. Pt given morphine with improvement of pain. Pt tolerating PO. Return precautions given. Diagnosis Primary Impression: Diverticulitis Additional Impression: UTI (urinary tract infection) Qualified Codes: N39.0 - Urinary tract infection, site not specified; R31.9 - Hematuria, unspecified Patient Instructions: General Instructions Departure Forms: Tests/Procedures Additional Instructions: Please follow up with your primary care physician in 2-3 days. Return to the ED if symptoms worsen. Med/Other Pt SpecificInfo: Prescription(s) given Scripts Acetaminophen (Tylenol) 325 Mg Tab 325 MG PO Q4H Y for PAIN SCALE 1 TO 4, #20 TAB 0 Refills Prov: Amanda Walter DO 03/27/17 Metronidazole (Flagyl) 500 Mg Tab 500 MG PO TID for Infection for 7 Days, TAB 0 Refills Prov: Amanda Walter DO 03/27/17 Ciprofloxacin (Ciprofloxacin) 500 Mg Tab 500 MG PO BID for Infection for 7 Days, #14 TAB 0 Refills Prov: Amanda Walter DO 03/27/17 Disposition: 01 DISCHARGE HOME Condition: Stable Amanda Walter DO Mar 27, 2017 07:20
[2017-03-27] MEDS ORDERED: ONDANSETRON HCL 4 MG/2 ML VIAL IVP ONE (07:30)
[2017-03-27] MEDS ORDERED: KETOROLAC TROMETHAMINE 30 MG/ML (IVP) VIAL IVP ONE (07:30)
[2017-03-27 08:12] LABS: AUTOMATED NEUTROPHIL # 5.3 TH/MM3 (1.8-7.7); BASOPHIL # 0.1 TH/MM3 (0-0.2); EOSINOPHIL % 0.4 % (0.0-4.0); HEMATOCRIT 40.9 % (35.0-46.0); HEMOGLOBIN 13.9 GM/DL (11.6-15.3); LYMPH % 13.8 % (9.0-44.0); LYMPHOCYTE # 0.9 TH/MM3 (1.0-4.8); MEAN CELL VOLUME 92.2 FL (80.0-100.0); MEAN CORPUSCULAR HEMOGLOBIN 31.4 PG (27.0-34.0); MEAN PLATELET VOLUME 8.4 FL (7.0-11.0); MONO % 7.5 % (0.0-8.0); MONOCYTE # 0.5 TH/MM3 (0-0.9); NEUT % 77.3 % (16.0-70.0); PLATELET COUNT 303 TH/MM3 (150-450); RED BLOOD COUNT 4.44 MIL/MM3 (4.00-5.30); RED CELL DISTRIBUTION WIDTH 14.2 % (11.6-17.2); WHITE BLOOD COUNT 6.9 TH/MM3 (4.0-11.0)
[2017-03-27 08:14] LABS: BACTERIA, URINE FEW /hpf; BILIRUBIN, URINE NEG (NEG); BLOOD, URINE TRACE (NEG); GLUCOSE,URINE NEG (NEG); KETONE, URINE NEG (NEG); MUCUS URINE FEW /lpf (OCC); NITRITE,URINE NEG (NEG); PH, URINE 6.5 (5.0-8.5); SQUAMOUS EPITHELIAL CELL URINE 13 /hpf (0-5); URINE COLOR YELLOW (YELLW/STRAW); URINE LEUKOCYTE ESTERASE LARGE (NEG)
[2017-03-27 08:23] LABS: PROTHROMBIN TIME - PATIENT 10.2 SEC (9.8-11.6)
[2017-03-27 08:24] LABS: ALBUMIN 3.6 GM/DL (3.4-5.0); ALT (GPT) 7 U/L (10-53); AST (GOT) 14 U/L (15-37); BICARBONATE 27.8 MEQ/L (21.0-32.0); BLOOD UREA NITROGEN 11 MG/DL (7-18); CALCIUM 8.8 MG/DL (8.5-10.1); CHLORIDE 107 MEQ/L (98-107); CREATININE 0.84 MG/DL (0.50-1.00); GLOMERULAR FILTRATION RATE 82 ML/MIN (>89); GLUCOSE,RANDOM 102 MG/DL (74-106); SODIUM (NA) 141 MEQ/L (136-145)
[2017-03-27 08:26] LABS: ALKALINE PHOSPHATASE 53 U/L (45-117); TOTAL BILIRUBIN ADULT 0.5 MG/DL (0.2-1.0); TOTAL PROTEIN 7.4 GM/DL (6.4-8.2)
[2017-03-27] MEDS ORDERED: cefTRIAXone INJ 1,000 MG in SODIUM CHLORIDE 0.9% INJ 100 ML IV ONE (08:45)
[2017-03-27] MEDS ORDERED: MORPHINE SULFATE 2 MG/ML INJ IV PUSH ONE ×2 (08:45→10:15)
[2017-03-27 09:01] VITALS: RESP 20
[2017-03-27] MEDS ORDERED: IOHEXOL 350 MG/ML 10 ML VIAL (for RAD DIAG) IVCONTRAST ONE (09:30)
--- NOTE | 2017-03-27 09:52 | RADRPT ---
EXAM DATE/TIME: 03/27/2017 09:33 [place] COMPARISON: CT ABDOMEN & PELVIS W CONTRAST, January 13, 2017, 14:05. INDICATIONS : Dysuria, suprapubic and left lower quadrant pain, nausea, vomiting and fever. IV CONTRAST: 85 cc Omnipaque 350 (iohexol) IV ORAL CONTRAST: No oral contrast ingested. RADIATION DOSE: 6.97 CTDIvol (mGy) MEDICAL HISTORY : Gastroesophageal reflux disease. Ulcers. Hypertension.Gastritis. SURGICAL HISTORY : Tubal ligation. Hysterectomy. ENCOUNTER: Initial ACUITY: 1 day PAIN SCALE: 6/10 LOCATION: Left lower quadrant TECHNIQUE: Volumetric scanning of the abdomen and pelvis was performed. Using automated exposure control and ad justment of the mA and/or kV according to patient size, radiation dose was kept as low as reasonably achievable to obtain optimal diagnostic quality images. DICOM format image data is available electro nically for review and comparison. FINDINGS: LOWER LUNGS: The visualized lower lungs are clear. LIVER: Homogeneous density without lesion. There is no dilation of the biliary tree. No calcified gallston es. SPLEEN: Normal size without lesion. PANCREAS: Within normal limits. KIDNEYS: Normal in size and shape. There is no mass, stone or hydronephrosis. Subcentimeter right renal low-d ensity ADRENAL GLANDS: Within normal limits. VASCULAR: There is no aortic aneurysm. BOWEL/MESENTERY: Mild degree of diverticulitis involving the sigmoid colon. No perforation or abscess.. There is no f ree intraperitoneal air or fluid. Small hiatal hernia. ABDOMINAL WALL: Within normal limits. RETROPERITONEUM: There is no lymphadenopathy. BLADDER: No wall thickening or mass. REPRODUCTIVE: Engorged heterogeneous uterus with minimal trace free fluid. INGUINAL: There is no lymphadenopathy or hernia. MUSCULOSKELETAL: Within normal limits for patient age. CONCLUSION: 1. Diverticulitis of the sigmoid colon without perforation or abscess. 2. Heterogeneous uterus with minimal trace free fluid. 3. Right renal low-density likely cysts. 4. Small hiatal hernia. Alvaro Walker MD on March 27, 2017 at 9:47 Board Certified Radiologist. This report was verified electronically.
[2017-03-27] MEDS ORDERED: metroNIDAZOLE 500 MG TAB PO ONE (10:00)
[2017-03-27] MEDS ORDERED: METR-1 PO (10:04)
[2017-03-27] MEDS ORDERED: CIPR500T2 PO (10:04)
[2017-03-27] MEDS ORDERED: TYLE325T PO (10:05)
[2017-03-27 10:15] VITALS: BP 161/70
[2017-03-28] MEDS ORDERED: ZOFR4TAB PO (15:53)
[2017-03-28] MEDS ORDERED: OMEP40CA2 PO (15:53)
== END 2017-03-27 10:23 | disposition home or self-care (01) ==
LOC: NEPE 06:38
DX: K57.32 Diverticulitis of large intestine without perforation or abscess without bleeding (principal); N39.0 Urinary tract infection, site not specified; R31.9 Hematuria, unspecified; F41.9 Anxiety disorder, unspecified; I10 Essential (primary) hypertension; K21.9 Gastro-esophageal reflux disease without esophagitis; F17.200 Nicotine dependence, unspecified, uncomplicated
CPT/HCPCS: 74177; 80053; 81001; 83690; 85025; 85610; 85730; 87086; 96365; 96375; 96376; 99284; J0696; J1885; J2270; J2405; Q9967

== ENCOUNTER 2017-03-28 12:09 | Emergency (ER) | payer MEDICARE, OTHER ==
[~2017-03-28 12:09] MED LIST changes: +CIPR500T2 PO; +METR-1 PO; +TYLE325T PO
[2017-03-28 12:11] VITALS: BP 179/92; PULSE 72; RESP 26; TEMP 97.9; O2SAT 97
[2017-03-28] MEDS ORDERED: ONDANSETRON HCL 4 MG/2 ML VIAL IVP ONE (13:15)
[2017-03-28] MEDS ORDERED: CIPROFLOXACIN 400 MG PREMIX 200 ML IV ONE (13:15)
[2017-03-28] MEDS ORDERED: metroNIDAZOLE 500 MG INJ 100 ML IV ONE (13:15)
[2017-03-28] MEDS ORDERED: SODIUM CHLOR 0.9% 1000 ML INJ 1,000 ML IV SCH (13:15)
[2017-03-28] MEDS ORDERED: MORPHINE SULFATE 2 MG/ML INJ IV PUSH ONE ×2 (13:15→14:30)
[2017-03-28] MEDS ORDERED: SODIUM CHLORIDE 0.9% FLUSH 10 ML FLUSH IV FLUSH PRN (13:15)
--- NOTE | 2017-03-28 13:21 | PD ---
HPI Chief Complaint: Medical Clearance Time Seen by Provider: 12:58 Travel History International Travel<30 days: No Contact w/Intl Traveler<30days: No Traveled to known affect area: No History of Present Illness HPI 66-year-old -[place] Islander female previously seen yesterday and diagnosed with diverticulitis, treated with Tylenol, ciprofloxacin, and metronidazole presents emergency department with worsening abdominal pain, nausea, and vomiting since midnight last night. Patient is unsure if she has had fever. She feels she needs morphine for her pain control. She denies urinary symptoms. She states she was up all night with nausea and vomiting and abdominal pain. Her pain is 10/10. She is allergic to codeine. PFSH Past Medical History Hx Anticoagulant Therapy: Yes (xarelto) Arthritis: Yes Asthma: No Autoimmune Disease: No Blood Disorders: No Anxiety: Yes Depression: No Heart Rhythm Problems: No Cancer: No Cardiovascular Problems: Yes (HTN) High Cholesterol: No Chest Pain: No Congestive Heart Failure: No COPD: No Diabetes: No Diminished Hearing: No Endocrine: No Gastrointestinal Disorders: Yes (chronic gastritis ) GERD: Yes Genitourinary: No Hiatal Hernia: No Hypertension: Yes Immune Disorder: No Musculoskeletal: No Neurologic: No Psychiatric: Yes Reproductive: No Respiratory: No Immunizations Current: Yes Pancreatitis: Yes (GASTRITIS) Thyroid Disease: No Ulcer: Yes PNEUMOCCOCAL Vaccine (Year): 2 Menopausal: Yes : 3 Para: 3 Miscarriage: 0 : 0 Tubal Ligation: Yes (1978) Past Surgical History AICD: No Gynecologic Surgery: Yes Hysterectomy: Yes Pacemaker: No Other Surgery: Yes Social History Alcohol Use: No ( ) Tobacco Use: Yes (1 pack a week) Substance Use: No Allergies-Medications (Allergen,Severity, Reaction): Coded Allergies: codeine (Verified Allergy, Severe, 03/28/17) VOMITING Reported Meds & Prescriptions Reported Meds & Active Scripts Active Zofran (Ondansetron HCl) 4 Mg Tab 4 Mg PO Q6HR PRN Omeprazole 40 Mg Cap 40 Mg PO DAILY Tylenol (Acetaminophen) 325 Mg Tab 325 Mg PO Q4H PRN Flagyl (Metronidazole) 500 Mg Tab 500 Mg PO TID 7 Days Ciprofloxacin (Ciprofloxacin HCl) 500 Mg Tab 500 Mg PO BID 7 Days Zofran Odt (Ondansetron Odt) 4 Mg Tab 4 Mg SL Q6HR PRN Zantac (Ranitidine HCl) 150 Mg Tab 150 Mg PO BID Macrobid (Nitrofurantoin Monohydrate Macrocrystals) 100 Mg Capsule 100 Mg PO BID 5 Days Omeprazole 40 Mg Cap 40 Mg PO DAILY Reported Hydrochlorothiazide 50 Mg Tab 50 Mg PO DAILY Lisinopril 20 Mg Tab 20 Mg PO DAILY Gabapentin 300 Mg Cap 300 Mg PO DAILY Meclizine (Meclizine HCl) 25 Mg Tab 25 Mg PO TID PRN Xarelto (Rivaroxaban) 20 Mg Tab 20 Mg PO DAILY Lorazepam 1 Mg Tab 1 Mg PO TID PRN Clonidine (Clonidine HCl) 0.1 Mg Tab 0.1 Mg PO DAILY Review of Systems Except as stated in HPI: all other systems reviewed are Neg General / Constitutional: Positive: Chills, No: Fever Eyes: No: Visual changes HENT: No: Headaches Cardiovascular: No: Chest Pain or Discomfort Respiratory: No: Shortness of Breath Gastrointestinal: Positive: Nausea, Vomiting, Abdominal Pain, Loss of Appetite , No: Diarrhea Genitourinary: No: Dysuria Musculoskeletal: No: Pain Skin: No Rash Neurologic: No: Weakness Psychiatric: No: Depression Endocrine: No: Polydipsia Hematologic/Lymphatic: No: Easy Bruising Physical Exam Narrative GENERAL: Patient appears in moderate distress. SKIN: Warm and dry. Normal color. Somewhat decreased turgor with tenting. HEAD: Atraumatic. Normocephalic. EYES: Pupils equal and round. No scleral icterus. No injection or drainage. ENT: No nasal bleeding or discharge. Mucous membranes pink and moist. Posterior pharynx is unremarkable. Airways patent NECK: Trachea midline. Supple nontender. CARDIOVASCULAR: Regular rate and rhythm. RESPIRATORY: No accessory muscle use. Clear to auscultation. Breath sounds equal bilaterally. GASTROINTESTINAL: Abdomen soft, moderate generalized tenderness. Mild to moderate left lower quadrant point tenderness, nondistended. No significant rebound tenderness. Bowel sounds present in all quadrants. Hepatic and splenic margins not palpable. MUSCULOSKELETAL: Extremities without clubbing, cyanosis, or edema. No obvious deformities. NEUROLOGICAL: Awake and alert. No obvious cranial nerve deficits. Motor grossly within normal limits. Five out of 5 muscle strength in the arms and legs. Normal speech. PSYCHIATRIC: Appropriate mood and affect; insight and judgment normal. Data Data Last Documented VS Vital Signs Date Time Temp Pulse Resp B/P (MAP) Pulse Ox O2 Delivery O2 Flow Rate FiO2 03/28/17 16:03 03/28/17 16:01 20 03/28/17 15:02 52 100 Room Air 03/28/17 12:11 97.9 Orders Orders Complete Blood Count With Diff (03/28/17 13:15) Comprehensive Metabolic Panel (03/28/17 13:15) Lipase (03/28/17 13:15) Lactic Acid (03/28/17 13:15) Iv Access Insert/Monitor (03/28/17 13:15) Ecg Monitoring (03/28/17 13:15) Oximetry (03/28/17 13:15) Ondansetron Inj (Zofran Inj) (03/28/17 13:15) Sodium Chlor 0.9% 1000 Ml Inj (Ns 1000 M (03/28/17 13:15) Sodium Chloride 0.9% Flush (Ns Flush) (03/28/17 13:15) Morphine Inj (Morphine Inj) (03/28/17 13:15) Ciprofloxacin 400 Mg Premix (Cipro 400 M (03/28/17 13:15) Metronidazole 500 Mg Inj (Flagyl 500 Mg (03/28/17 13:15) Abdomen, Flat & Upright (03/28/17 ) Famotidine Inj (Pepcid Inj) (03/28/17 14:30) Al-Mag Hy-Si 40-40-4 Mg/Ml Liq (Mag-Al P (03/28/17 14:30) Lidocaine 2% Viscous (Xylocaine 2% Visco (03/28/17 14:30) Morphine Inj (Morphine Inj) (03/28/17 14:30) Ed Discharge Order (03/28/17 16:04) Labs Laboratory Tests Test 03/28/17 13:55 White Blood Count 8.1 TH/MM3 Red Blood Count 4.32 MIL/MM3 Hemoglobin 13.6 GM/DL Hematocrit 40.1 % Mean Corpuscular Volume 92.8 FL Mean Corpuscular Hemoglobin 31.5 PG Mean Corpuscular Hemoglobin Concent 33.9 % Red Cell Distribution Width 14.1 % Platelet Count 282 TH/MM3 Mean Platelet Volume 8.5 FL Neutrophils (%) (Auto) 83.8 % Lymphocytes (%) (Auto) 10.0 % Monocytes (%) (Auto) 5.7 % Eosinophils (%) (Auto) 0.1 % Basophils (%) (Auto) 0.4 % Neutrophils # (Auto) 6.8 TH/MM3 Lymphocytes # (Auto) 0.8 TH/MM3 Monocytes # (Auto) 0.5 TH/MM3 Eosinophils # (Auto) 0.0 TH/MM3 Basophils # (Auto) 0.0 TH/MM3 CBC Comment DIFF FINAL Differential Comment Blood Urea Nitrogen 13 MG/DL Creatinine 0.90 MG/DL Random Glucose 98 MG/DL Total Protein 7.9 GM/DL Albumin 3.8 GM/DL Calcium Level 8.9 MG/DL Alkaline Phosphatase 61 U/L Aspartate Amino Transf (AST/SGOT) 12 U/L Alanine Aminotransferase (ALT/SGPT) 9 U/L Total Bilirubin 0.6 MG/DL Sodium Level 137 MEQ/L Potassium Level 3.4 MEQ/L Chloride Level 102 MEQ/L Carbon Dioxide Level 25.9 MEQ/L Anion Gap 9 MEQ/L Estimat Glomerular Filtration Rate 75 ML/MIN Lactic Acid Level 1.2 mmol/L Lipase 79 U/L [facility] Medical Decision Making Medical Screen Exam Complete: Yes Emergency Medical Condition: Yes Medical Record Reviewed: Yes Differential Diagnosis Diverticulitis. Possible bowel perforation. Intractable vomiting. Abdominal pain. Malingering. Drug-seeking behavior. Narrative Course Patient appears medically stable at time of exam. Laboratory including CBC, CMP, lactic acid, and lipase. IV access is obtained the patient was given 4 mg Zofran IV as well as 4 mg morphine IV. Patient is given 500 mg metronidazole IV as well as 400 mg Cipro IV. Abdominal flat and upright x-ray is ordered. CBC is unremarkable. Chemistries showed X-ray shows no acute findings per radiologist. There is no free air. Patient is discussed with and evaluated with Dr. Yao. Patient is given an additional 2 mg morphine, as well as 20 mg Pepcid, and a GI cocktail. Patient is discharged home on omeprazole 40 mg daily #30. Patient also given Zofran 4 mg every 6 hours as needed #20. Patient is to continue her metronidazole and Cipro as previously prescribed p.o. Patient has Lortab at home which she can take for pain. Patient should follow-up with her primary care physician or return if symptoms worsen as needed. Diagnosis Primary Impression: Abdominal pain Qualified Codes: R10.32 - Left lower quadrant pain Referrals: Primary Care Physician Patient Instructions: Diverticulitis (ED), Diverticulitis Diet (ED), General Instructions Additional Instructions: Patient is discharged home on omeprazole 40 mg daily #30. Patient also given Zofran 4 mg every 6 hours as needed #20. Patient is to continue her metronidazole and Cipro as previously prescribed p.o. Patient has Lortab at home which she can take for pain. Patient should follow-up with her primary care physician or return if symptoms worsen as needed. Med/Other Pt SpecificInfo: Prescription(s) given, No Change to Meds Scripts Ondansetron (Zofran) 4 Mg Tab 4 MG PO Q6HR Y for NAUSEA OR VOMITING, #20 TAB 0 Refills Prov: Rhonda Yao MD 03/28/17 Omeprazole (Omeprazole) 40 Mg Cap 40 MG PO DAILY, #30 CAP 0 Refills Prov: Rhonda Yao MD 03/28/17 Disposition: 01 DISCHARGE HOME Condition: Stable Elroy Diallo Mar 28, 2017 13:21
--- NOTE | 2017-03-28 13:49 | RADRPT ---
EXAM DATE/TIME: 03/28/2017 13:37 [place] COMPARISON: ABDOMEN FLAT & UPRIGHT, February 05, 2015, 9:58. INDICATIONS : Abdominal pain and vomiting since yesterday. MEDICAL HISTORY : Gastroesophageal reflux disease. Ulcers. Hypertension.Gastritis. SURGICAL HISTORY : Tubal ligation. Hysterectomy. ENCOUNTER: Initial ACUITY: 1 day PAIN SCORE: 10/10 LOCATION: Bilateral Abdomen FINDINGS: Supine and upright views of the abdomen were performed. The abdominal bowel gas pattern is normal. No air fluid levels are seen. No abnormal masses, calcifications, or organomegaly is seen. The visu alized lower lungs are clear. No evidence of free intraperitoneal gas. The osseous structures are u nremarkable. CONCLUSION: Unremarkable abdomen. Alvaro Walker MD on March 28, 2017 at 13:47 Board Certified Radiologist. This report was verified electronically.
[2017-03-28 14:00] VITALS: BP 185/89; PULSE 70; RESP 24; O2SAT 100
[2017-03-28 14:14] LABS: AUTOMATED NEUTROPHIL # 6.8 TH/MM3 (1.8-7.7); BASOPHIL % 0.4 % (0.0-2.0); EOSINOPHIL % 0.1 % (0.0-4.0); HEMATOCRIT 40.1 % (35.0-46.0); HEMOGLOBIN 13.6 GM/DL (11.6-15.3); LYMPHOCYTE # 0.8 TH/MM3 (1.0-4.8); MEAN CELL VOLUME 92.8 FL (80.0-100.0); MEAN CORPUSCULAR HEMOGLOBIN 31.5 PG (27.0-34.0); MEAN CORPUSCULAR HGB CONC 33.9 % (32.0-36.0); MEAN PLATELET VOLUME 8.5 FL (7.0-11.0); MONO % 5.7 % (0.0-8.0); MONOCYTE # 0.5 TH/MM3 (0-0.9); NEUT % 83.8 % (16.0-70.0); PLATELET COUNT 282 TH/MM3 (150-450); RED BLOOD COUNT 4.32 MIL/MM3 (4.00-5.30); RED CELL DISTRIBUTION WIDTH 14.1 % (11.6-17.2); WHITE BLOOD COUNT 8.1 TH/MM3 (4.0-11.0)
[2017-03-28] MEDS ORDERED: LIDOCAINE VISCOUS 2% SOLN 15 ML UDC PO ONE (14:30)
[2017-03-28] MEDS ORDERED: FAMOTIDINE 20 MG/2 ML VIAL IV PUSH ONE (14:30)
[2017-03-28] MEDS ORDERED: ALUMINUM/MAGNESIUM/SIMETH 30 ML CUP PO ONE (14:30)
[2017-03-28 14:35] LABS: ALBUMIN 3.8 GM/DL (3.4-5.0); ALT (GPT) 9 U/L (10-53); AST (GOT) 12 U/L (15-37); BICARBONATE 25.9 MEQ/L (21.0-32.0); BLOOD UREA NITROGEN 13 MG/DL (7-18); CALCIUM 8.9 MG/DL (8.5-10.1); CHLORIDE 102 MEQ/L (98-107); GLOMERULAR FILTRATION RATE 75 ML/MIN (>89); GLUCOSE,RANDOM 98 MG/DL (74-106); SODIUM (NA) 137 MEQ/L (136-145)
[2017-03-28 14:37] LABS: ALKALINE PHOSPHATASE 61 U/L (45-117); TOTAL BILIRUBIN ADULT 0.6 MG/DL (0.2-1.0); TOTAL PROTEIN 7.9 GM/DL (6.4-8.2)
[2017-03-28 15:02] VITALS: BP 127/62; PULSE 52; RESP 20; O2SAT 100
[2017-03-28] MEDS ORDERED: OMEP40CA2 PO (15:53)
[2017-03-28] MEDS ORDERED: ZOFR4TAB PO (15:53)
[2017-03-28 16:01] VITALS: RESP 20
--- NOTE | 2017-03-29 09:15 | PD ---
Data Data Last Documented VS Vital Signs Date Time Temp Pulse Resp B/P (MAP) Pulse Ox O2 Delivery O2 Flow Rate FiO2 03/28/17 16:03 03/28/17 16:01 20 03/28/17 15:02 52 100 Room Air 03/28/17 12:11 97.9 Orders Orders Complete Blood Count With Diff (03/28/17 13:15) Comprehensive Metabolic Panel (03/28/17 13:15) Lipase (03/28/17 13:15) Lactic Acid (03/28/17 13:15) Iv Access Insert/Monitor (03/28/17 13:15) Ecg Monitoring (03/28/17 13:15) Oximetry (03/28/17 13:15) Ondansetron Inj (Zofran Inj) (03/28/17 13:15) Sodium Chlor 0.9% 1000 Ml Inj (Ns 1000 M (03/28/17 13:15) Sodium Chloride 0.9% Flush (Ns Flush) (03/28/17 13:15) Morphine Inj (Morphine Inj) (03/28/17 13:15) Ciprofloxacin 400 Mg Premix (Cipro 400 M (03/28/17 13:15) Metronidazole 500 Mg Inj (Flagyl 500 Mg (03/28/17 13:15) Abdomen, Flat & Upright (03/28/17 ) Famotidine Inj (Pepcid Inj) (03/28/17 14:30) Al-Mag Hy-Si 40-40-4 Mg/Ml Liq (Mag-Al P (03/28/17 14:30) Lidocaine 2% Viscous (Xylocaine 2% Visco (03/28/17 14:30) Morphine Inj (Morphine Inj) (03/28/17 14:30) Ed Discharge Order (03/28/17 16:04) Labs Laboratory Tests Test 03/28/17 13:55 White Blood Count 8.1 TH/MM3 Red Blood Count 4.32 MIL/MM3 Hemoglobin 13.6 GM/DL Hematocrit 40.1 % Mean Corpuscular Volume 92.8 FL Mean Corpuscular Hemoglobin 31.5 PG Mean Corpuscular Hemoglobin Concent 33.9 % Red Cell Distribution Width 14.1 % Platelet Count 282 TH/MM3 Mean Platelet Volume 8.5 FL Neutrophils (%) (Auto) 83.8 % Lymphocytes (%) (Auto) 10.0 % Monocytes (%) (Auto) 5.7 % Eosinophils (%) (Auto) 0.1 % Basophils (%) (Auto) 0.4 % Neutrophils # (Auto) 6.8 TH/MM3 Lymphocytes # (Auto) 0.8 TH/MM3 Monocytes # (Auto) 0.5 TH/MM3 Eosinophils # (Auto) 0.0 TH/MM3 Basophils # (Auto) 0.0 TH/MM3 CBC Comment DIFF FINAL Differential Comment Blood Urea Nitrogen 13 MG/DL Creatinine 0.90 MG/DL Random Glucose 98 MG/DL Total Protein 7.9 GM/DL Albumin 3.8 GM/DL Calcium Level 8.9 MG/DL Alkaline Phosphatase 61 U/L Aspartate Amino Transf (AST/SGOT) 12 U/L Alanine Aminotransferase (ALT/SGPT) 9 U/L Total Bilirubin 0.6 MG/DL Sodium Level 137 MEQ/L Potassium Level 3.4 MEQ/L Chloride Level 102 MEQ/L Carbon Dioxide Level 25.9 MEQ/L Anion Gap 9 MEQ/L Estimat Glomerular Filtration Rate 75 ML/MIN Lactic Acid Level 1.2 mmol/L Lipase 79 U/L MDM Supervised Visit with KYM: Yes Narrative Course The history, exam, and medical decision-making in the associated midlevel provider note were completed with my assistance. I reviewed and agree with the findings presented. I attest that I had a [id number] encounter with the patient on the same day, and personally performed and documented my assessment and findings in the medical record. *My assessment and Findings: This is a 66-year-old female who presents to the with abdominal pain. I know this patient pretty well and I have seen her several times in the setting of chronic recurrent abdominal pain which has been attributed to gastritis. Yesterday she had a CT scan which demonstrated some mild diverticulitis. She had no leukocytosis or fever. Today she has a fairly benign abdomen with no peritoneal signs. She continues to have normal vital signs and reassuring blood work. I do not suspect a perforation or an acute diverticulitis complication based on her exam.. KUB was obtained demonstrating no free air. I think the patient should continue pain control and antibiotic therapy. If she returns to the emergency department again we can perform repeat CT scan but at this time I think this continues to be uncomplicated diverticulitis. Diagnosis Primary Impression: Abdominal pain Qualified Codes: R10.32 - Left lower quadrant pain Referrals: Primary Care Physician Patient Instructions: General Instructions, Narcotic given in the ED, Diverticulitis (ED), Diverticulitis Diet (ED) Departure Forms: Tests/Procedures Scripts Ondansetron (Zofran) 4 Mg Tab 4 MG PO Q6HR Y for NAUSEA OR VOMITING, #20 TAB 0 Refills Prov: Rhonda Yao MD 03/28/17 Omeprazole (Omeprazole) 40 Mg Cap 40 MG PO DAILY, #30 CAP 0 Refills Prov: Rhonda Yao MD 03/28/17 Disposition: 01 DISCHARGE HOME Condition: Stable Rhonda Yao MD Mar 29, 2017 09:15
== END 2017-03-28 16:43 | disposition home or self-care (01) ==
LOC: NEPD 12:09
DX: R10.32 Left lower quadrant pain (principal); R11.2 Nausea with vomiting, unspecified; M19.90 Unspecified osteoarthritis, unspecified site; F41.9 Anxiety disorder, unspecified; I10 Essential (primary) hypertension; K21.9 Gastro-esophageal reflux disease without esophagitis; F17.200 Nicotine dependence, unspecified, uncomplicated; Z87.19 Personal history of other diseases of the digestive system
CPT/HCPCS: 74019; 80053; 83605; 83690; 85025; 96365; 96367; 96375; 96376; 99283; J0744; J2270; J2405; J7030

== ENCOUNTER 2017-03-30 10:54 | Emergency (ER) | payer MEDICARE, OTHER ==
[~2017-03-30] VITALS: Ht 157.5 cm; Wt 63.5 kg
[~2017-03-30 10:54] MED LIST changes: +ZOFR4TAB PO
[2017-03-30 10:55] VITALS: BP 153/85; PULSE 72; RESP 16; TEMP 98.9; O2SAT 96
--- NOTE | 2017-03-30 11:16 | PD ---
HPI Chief Complaint: Complaint Time Seen by Provider: 11:09 Travel History International Travel<30 days: No Contact w/Intl Traveler<30days: No Traveled to known affect area: No History of Present Illness HPI 66-year-old female presents to the emergency department requesting morphine for her continued left lower quadrant abdominal pain that she has been seen for on March 27 and here at [place]. Pain started again last night at 6 PM and has been constant. She was diagnosed with diverticulitis on March 27. She's been taking Flagyl and ciprofloxacin as prescribed. Reports continued diarrhea and vomiting. Denies hematochezia, hematemesis. Denies fevers. Reports "a little "dysuria. Has been taking Tylenol for symptom management. Rates pain . Describes it as a stabbing and cramping sensation. No known relieving or aggravating factors. Allergies to codeine. History of hypertension and DVT intake Xarelto. Primary care provider is Dr. Ernesto Love. Has no other medical complaints. No other modifying factors or associated signs and symptoms. PFSH Past Medical History Hx Anticoagulant Therapy: Yes (xarelto) Arthritis: Yes Asthma: No Autoimmune Disease: No Blood Disorders: No Anxiety: Yes Depression: No Heart Rhythm Problems: No Cancer: No Cardiovascular Problems: Yes (HTN) High Cholesterol: No Chest Pain: No Congestive Heart Failure: No COPD: No Diabetes: No Diminished Hearing: No Endocrine: No Gastrointestinal Disorders: Yes (chronic gastritis ) GERD: Yes Genitourinary: No Hiatal Hernia: No Hypertension: Yes Immune Disorder: No Musculoskeletal: No Neurologic: No Psychiatric: Yes Reproductive: No Respiratory: No Immunizations Current: Yes Pancreatitis: Yes (GASTRITIS) Thyroid Disease: No Ulcer: Yes PNEUMOCCOCAL Vaccine (Year): 2 Menopausal: Yes : 3 Para: 3 Miscarriage: 0 : 0 Tubal Ligation: Yes (1978) Past Surgical History AICD: No Gynecologic Surgery: Yes Hysterectomy: Yes Pacemaker: No Other Surgery: Yes Social History Alcohol Use: No (HX ) Tobacco Use: Yes (1 pack a week) Substance Use: No Allergies-Medications (Allergen,Severity, Reaction): Coded Allergies: codeine (Verified Allergy, Severe, 03/30/17) VOMITING Reported Meds & Prescriptions Reported Meds & Active Scripts Active Tramadol (Tramadol HCl) 50 Mg Tab 50 Mg PO Q4H PRN Zofran (Ondansetron HCl) 4 Mg Tab 4 Mg PO Q6HR PRN Omeprazole 40 Mg Cap 40 Mg PO DAILY Tylenol (Acetaminophen) 325 Mg Tab 325 Mg PO Q4H PRN Flagyl (Metronidazole) 500 Mg Tab 500 Mg PO TID 7 Days Ciprofloxacin (Ciprofloxacin HCl) 500 Mg Tab 500 Mg PO BID 7 Days Zofran Odt (Ondansetron Odt) 4 Mg Tab 4 Mg SL Q6HR PRN Zantac (Ranitidine HCl) 150 Mg Tab 150 Mg PO BID Macrobid (Nitrofurantoin Monohydrate Macrocrystals) 100 Mg Capsule 100 Mg PO BID 5 Days Omeprazole 40 Mg Cap 40 Mg PO DAILY Reported Hydrochlorothiazide 50 Mg Tab 50 Mg PO DAILY Lisinopril 20 Mg Tab 20 Mg PO DAILY Gabapentin 300 Mg Cap 300 Mg PO DAILY Meclizine (Meclizine HCl) 25 Mg Tab 25 Mg PO TID PRN Xarelto (Rivaroxaban) 20 Mg Tab 20 Mg PO DAILY Lorazepam 1 Mg Tab 1 Mg PO TID PRN Clonidine (Clonidine HCl) 0.1 Mg Tab 0.1 Mg PO DAILY Review of Systems Except as stated in HPI: all other systems reviewed are Neg Physical Exam Narrative GENERAL: Well-nourished, well-developed black female patient, in no acute distress; afebrile SKIN: Warm and dry. HEAD: Atraumatic. Normocephalic. EYES: Pupils equal and round. No scleral icterus. No injection or drainage. ENT: Mucosa pink and moist. Airway patent. NECK: Trachea midline. CARDIOVASCULAR: Regular rate and rhythm. No murmur appreciated. RESPIRATORY: No accessory muscle use. Clear to auscultation. Breath sounds equal bilaterally. GASTROINTESTINAL: Abdomen soft, tenderness on palpation to left lower quadrant, nondistended. Hepatic and splenic margins not palpable. Bowel sounds are active 4 quadrants. Nonrigid. No rebound tenderness. No guarding. MUSCULOSKELETAL: No obvious deformities. No clubbing. No cyanosis. No edema. NEUROLOGICAL: Awake and alert. Oriented 3. No obvious cranial nerve deficits. Motor grossly within normal limits. Normal speech. PSYCHIATRIC: Appropriate mood and affect; insight and judgment normal. Data Data Last Documented VS Vital Signs Date Time Temp Pulse Resp B/P (MAP) Pulse Ox O2 Delivery O2 Flow Rate FiO2 03/30/17 11:41 03/30/17 11:31 65 20 98 Room Air 03/30/17 10:55 98.9 Orders Orders Tramadol (Ultram) (03/30/17 11:30) Ed Discharge Order (03/30/17 11:29) [facility] Medical Decision Making Medical Screen Exam Complete: Yes Emergency Medical Condition: Yes Medical Record Reviewed: Yes Differential Diagnosis Pain management, diverticulitis, narcotic seeking, abdominal pain Narrative Course 66-year-old female who was seen on March 27 and every for the same complaints. On March she was treated with ciprofloxacin and Flagyl after being diagnosed with diverticulitis and a urinary tract infection. Ct abd /pelvis on March 27 concluded: Diverticulitis of the sigmoid colon without perforation or abscess; 2. Heterogeneous uterus with minimal trace free fluid; 3. Right renal low-density likely cysts; 4. Small hiatal hernia. The patient was again seen on March 28 and was sent home with Zofran and omeprazole. CBC , CMP, lipase were all unremarkable on both visits. I reviewed the urine culture and it grew out gram-positive jimi with probable contaminants. I discussed the patient with , my attending physician, and he agrees with my plan of care. Tramadol administered in the ER. Tramadol prescribed for home. Instructed patient to follow up with gastroenterology. Instructed patient to follow up with primary care provider. Patient verbalizes understanding and agreement with treatment plan. Patient is medically cleared and stable for discharge. Discussed reasons to return to the emergency department. Patient agrees with treatment plan. The patients vital signs are stable and the patient is stable for outpatient follow-up and treatment. Patient discharged home, stable and in no acute distress. Diagnosis Primary Impression: Diverticulitis Referrals: Interior Designer Primary Care Physician Patient Instructions: Diverticulitis (ED), General Instructions Additional Instructions: Take full course of antibiotics prescribed and as directed Increase fiber foods such as fresh fruits and vegetables, whole grains Increase fluid intake Follow-up with primary care provider Follow up with gastroenterology Return immediately to the emergency department with worsening of symptoms Med/Other Pt SpecificInfo: Prescription(s) given Scripts Tramadol (Tramadol) 50 Mg Tab 50 MG PO Q4H Y for PAIN, #12 TAB 0 Refills Prov: Aliya Hampton 03/30/17 Disposition: 01 DISCHARGE HOME Condition: Stable Aliya Hampton Mar 30, 2017 11:16
[2017-03-30] MEDS ORDERED: TRAM50TA PO (11:29)
[2017-03-30] MEDS ORDERED: traMADol HCL 50 MG TAB PO ONE (11:30)
[2017-03-30 11:31] VITALS: BP 161/85; PULSE 65; RESP 20; O2SAT 98
== END 2017-03-30 11:48 | disposition home or self-care (01) ==
LOC: NEPD 10:54
DX: K57.32 Diverticulitis of large intestine without perforation or abscess without bleeding (principal); K21.9 Gastro-esophageal reflux disease without esophagitis; I10 Essential (primary) hypertension; F17.200 Nicotine dependence, unspecified, uncomplicated; Z79.01 Long term (current) use of anticoagulants
CPT/HCPCS: 99283